=== PATIENT | female | born 1975 | race Caucasian/White ===

== ENCOUNTER 2017-02-10 16:54 | Inpatient (IN) ==
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
[2017-02-10 18:03] LABS: Basophils % 0.1 %; Eosinophils # 0.1 K/mcL (0.0-0.6); Eosinophils % 0.5 %; Hematocrit 42.7 % (35.3-44.9); Hemoglobin 14.2 g/dL (11.5-15.4); Immature Granulocytes % 0.6 % (0-4); Lymphocytes % 7.7 %; Mean Corpuscular HGB Conc 33.3 g/dL (31.6-35.5); Mean Corpuscular Hemoglobin 30.8 pg (28.0-33.3); Mean Corpuscular Volume 92.6 fL (83.0-100.0); Mean Platelet Volume 10.1 fL (9.4-12.4); Monocytes # 1.7 K/mcL (0.0-1.3); Monocytes % 6.4 %; Platelet Count 441 K/mcL (140-400); Red Blood Count 4.61 M/mcL (3.82-4.97); Red Cell Distribution Width 13.4 % (11.5-14.5); Segmented Neutrophils % 84.7 %
[2017-02-10 18:13] LABS: BUN/Creatinine Ratio 16 (6-26); Blood Urea Nitrogen 16 mg/dL (7-20); Calcium 9.4 mg/dL (8.6-10.8); Carbon Dioxide 25 mEq/L (19-29); Chloride 106 mEq/L (98-109); Glucose 132 mg/dL (70-99); Osmolality,Calculated 291 (280-300); Potassium 3.6 mEq/L (3.5-4.5); Sodium 139 mEq/L (136-145); eGFR For African Americans > 60 (> 60); eGFR For Non-African Americans 58 (> 60)
[2017-02-10 18:31] LABS: Reactive Lymphocytes Present (Not Present)
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
[2017-02-10] MEDS ORDERED: *HR* HYDROmorphone (PF) 1 MG/ML SYRINGE IM ONE (19:16)
[2017-02-10] MEDS ORDERED: Ondansetron ODT 4 MG TAB.RAPDIS SL ONE (19:16)
[2017-02-10] MEDS ORDERED: *HR* HYDROmorphone (PF) 1 MG/ML SYRINGE IVP ONE ×2 (19:48→21:51)
[2017-02-10] MEDS ORDERED: MetroNIDAZOLE 500 MG/100 ML 500 MG/100 ML BAG IVPB ONE (20:15)
[2017-02-10] MEDS ORDERED: cefTRIAXone 1,000 MG in Water for inj. (sterile) 10 ML IVP ONE (21:00)
[2017-02-10] MEDS ORDERED: Ibuprofen 400 MG TABLET PO PRN (23:22)
[2017-02-10] MEDS ORDERED: Naloxone 0.4 MG/ML INJ IVP PRN (23:22)
--- NOTE | 2017-02-10 23:25 | Internal Med History&Physical ---
Date of Encounter: 02/10/17 Time of Encounter: 23:53 Assessment and Plan (1) Sepsis Current visit: Yes Status: Acute Patient meets sepsis criteria with tachycardia of 1 29 bpm on arrival, associated with leukocytosis, and source of sepsis is diverticulitis with perforation. She is afebrile. Blood pressure is within normal limits. Lactate and blood cultures were not drawn by the ER , we will obtain the same. Continue Ceftriaxone and Flagyl Follow blood cultures Start IVF hydration Qualifiers: Sepsis type: sepsis due to unspecified organism Qualified Code(s): A41.9 - Sepsis, unspecified organism (2) Syncope Current visit: Yes Status: Acute Possibly vasovagal from abdominal pain Head CT and EKG unremarkable Obtain ECO Patient has no neurologic deficits. Qualifiers: Syncope type: unspecified Qualified Code(s): R55 - Syncope and collapse (3) Diverticulitis large intestine Current visit: Yes Status: Acute Sigmoid diverticulitis with microperforation Discussed with Dr. Kuo, he will evaluate patient Keep NPO for now IVF hydration Pain control Continue Ceftriaxone and Flagyl Qualifiers: Diverticulitis bleeding: unspecified bleeding status Diverticulitis complication: with perforation Qualified Code(s): K57.20 - Diverticulitis of large intestine with perforation and abscess without bleeding Internal Medicine - H&P: HPI Chief complaint: Abdominal pain, diarrhea. Admitted From: Home Plans for Post Hospital Care: Home History of present illness: Ms. Roberts is a 41 year old female with no significant medical history apart from tobacco use Patient presented to the ER with complaints of severe abdominal pain which status since she stopped taking steroids about 3 days ago, abdominal pain is not relieved by medications, severe, 9/OVER 10 , sharp and radiating to the back. Patient reports associated diarrhea and bowel incontinence. She denies fever or chills. The patient was in her usual state of health until 2 weeks ago when she fell in the bathtub. She went to an urgent care and was given prednisone for pain and chest wall contusion. She had no fractures. Since she stopped taking prednisone, she said she developed constipation, which was relieved with taking laxatives, however, she continued to have severe abdominal pain. Pain is worse when she eats, when she moves. During work today, she had an episode of disorientation, associated with seeing purple dots and passing out.She denies chest pain, shortness of breath, however she has been having to hold her breath because of severity of abdominal pain. She denies hematemesis or hematochezia. She has no nausea or vomiting. Other review of systems is not contributory. On presentation to the ER, patient was in severe pain, requiring 2 doses of Dilaudid, she was tachycardic with a heart rate off to the 120s, she was afebrile. Her blood pressure was within normal limits. Workup in the ER revealed leukocytosis, with left shift, mild hyperglycemia. Abdomen and pelvis CT done showed sigmoid , diverticulitis with associated multiple microperforations. There are no abscesses. Incidental finding of left nephrolithiasis. Head and chest CT were unremarkable. Past Med Surg Social Fam HX - Past Medical History Medical history: no medical history Psychiatric history: no psych history - Past Surgical History Surgical History: hysterectomy - Social History Smoking Status: Former smoker Smokeless Tobacco Status: (Chantex) Alcohol use: occasionally Drug use: none Internal Medicine - H&P: Meds Diclofenac Sodium [Voltaren] 75 mg PO Q12H 02/10/17 [History] Varenicline Tartrate [Chantix] 1 mg PO BID 02/10/17 [History] 3 Allergy/AdvReac Type Severity Reaction Status Date / Time Amoxicillin Allergy Hives Verified 02/10/17 17:26 Penicillins Allergy Hives Verified 02/10/17 17:26 codeine AdvReac See Verified 02/10/17 17:26 Comments All Systems PM: A 10-system review of systems was performed and is negative for pertinent findings except as documented above in the HPI. - Constitutional Constitutional: as per HPI - EENT Eyes: as per HPI Ears: as per HPI Nose, mouth and throat: as per HPI - Cardiovascular Cardiovascular ROS IM: as per HPI - Respiratory Respiratory: as per HPI - Gastrointestinal Gastrointestinal: as per HPI - Genitourinary Genitourinary: as per HPI - Musculoskeletal Musculoskeletal ROS IM: as per HPI - Integumentary Integumentary IM: as per HPI - Neurological Neurological ROS: as per HPI - Hematologic/Lymphatic Hematologic/Lymphatic: as per HPI - Constitutional Vitals: Temp Pulse Resp BP Pulse Ox 99.1 F 98 18 108/71 95 02/10/17 23:02 02/10/17 23:02 02/10/17 23:02 02/10/17 23:02 02/10/17 23:02 General appearance: Present: mild distress, A&O X 3, pleasant - Head Head exam: Present: atraumatic, normocephalic - Eye Eye exam: Present: PERRL, conjuntiva pink, sclera anicteric Pupils: Present: PERRL - Neck Neck exam general surgery: Present: supple, trachea midline. Absent: lymphadenopathy - Respiratory Respiratory exam: Present: CTAB. Absent: accessory muscle use, rales, rhonchi, wheezes - GI/Abdominal Additional comments: Abdomen was soft, generalized tenderness, abdomen moves with respiration, there is no guarding and no rebound. Bowel sounds are diminished. - Extremities Exam Extremities exam: Present: warm, radial pulses palpable and symmetrical. Absent : calf tenderness, cyanotic, pedal edema - Neurological Exam Neurological exam: Present: alert, CN II-XII intact, normal gait, oriented X3, no focal deficits. Absent: pronater drift, facial droop, speech deficit - Skin Skin exam: Present: dry, intact Internal Med - H&P Results - Labs CBC & Chem 7: 02/10/17 17:53 02/10/17 17:53
[2017-02-11] MEDS: 0.9 % Sodium Chloride 1,000 ML IVC SCH ×2 (00:42→17:03)
[2017-02-11] MEDS: *HR* HYDROmorphone (PF) 1 MG/ML SYRINGE IVP PRN ×5 (00:51→20:31)
[2017-02-11 00:53] LABS: Basophils % 0.2 %; Immature Granulocytes % 0.8 % (0-4)
[2017-02-11 00:55] LABS: Basophils # 0.1 K/mcL (0.0-0.2); Eosinophils # 0.2 K/mcL (0.0-0.6); Eosinophils % 0.6 %; Hematocrit 38.7 % (35.3-44.9); Immature Platelets 3.9 % (1.1-6.1); Lymphocytes # 2.7 K/mcL (0.6-4.6); Lymphocytes % 9.7 %; Mean Corpuscular HGB Conc 33.6 g/dL (31.6-35.5); Mean Corpuscular Volume 92.1 fL (83.0-100.0); Monocytes # 2.9 K/mcL (0.0-1.3); Monocytes % 10.4 %; Neutrophils # 21.9 K/mcL (1.6-8.9); Platelet Count 409 K/mcL (140-400); Red Cell Distribution Width 13.6 % (11.5-14.5); Segmented Neutrophils % 78.3 %
[2017-02-11 01:07] LABS: BUN/Creatinine Ratio 14 (6-26); Blood Urea Nitrogen 11 mg/dL (7-20); Calcium 9.1 mg/dL (8.6-10.8); Carbon Dioxide 22 mEq/L (19-29); Chloride 105 mEq/L (98-109); Glucose 98 mg/dL (70-99); Osmolality,Calculated 281 (280-300); Phosphorous 3.2 mg/dL (2.3-4.7); Sodium 136 mEq/L (136-145); eGFR For African Americans > 60 (> 60); eGFR For Non-African Americans > 60 (> 60)
[2017-02-11 01:40] LABS: Platelet Estimate Increased (Normal)
[2017-02-11] MEDS: Acetaminophen 325 MG TABLET PO PRN ×2 (04:03→12:16)
[2017-02-11] MEDS: MetroNIDAZOLE 500 MG/100 ML 500 MG/100 ML BAG IVPB SCH ×3 (04:04→20:31)
[2017-02-11] MEDS: *HR* Enoxaparin 40 MG/0.4 ML SYRINGE SQ SCH (05:01)
[2017-02-11] MEDS: Ondansetron 4 MG/2 ML VIAL IVP PRN ×3 (08:03→20:31)
[2017-02-11] MEDS ORDERED: cefTRIAXone 1,000 MG in Water for inj. (sterile) 10 ML IVP SCH (09:00)
--- NOTE | 2017-02-11 11:15 | Internal Med Progress Note ---
Date of Encounter: 02/11/17 Time of Encounter: 09:00 - Assessment and plan (1) Sepsis Current Visit: Yes Status: Acute Assessment and plan: Due to diverticulitis. Leukocytosis persists. Patient is receiving ceftriaxone and metronidazole. Also requiring intravenous narcotic medications for pain control. Lactic acid normal. High-risk for complications. Qualifiers: Sepsis type: sepsis due to unspecified organism Qualified Code(s): A41.9 - Sepsis, unspecified organism (2) Diverticulitis large intestine Current Visit: Yes Status: Acute Assessment and plan: Involving sigmoid colon with microperforation. Surgery has been consulted. We will follow recommendations Qualifiers: Diverticulitis bleeding: without bleeding Diverticulitis complication: with perforation Qualified Code(s): K57.20 - Diverticulitis of large intestine with perforation and abscess without bleeding (3) Syncope Current Visit: Yes Status: Resolved Assessment and plan: No new episodes. We will follow results of echocardiogram. Qualifiers: Syncope type: vasovagal syncope Qualified Code(s): R55 - Syncope and collapse - Subjective Interval history: Patient is awake and alert. Complains of pain all across her abdomen. She also complains of a headache and back pain. Denies any fever or chills. No dizziness. - Constitutional Vitals: Temp Pulse Resp BP Pulse Ox 98.6 F 87 14 123/83 97 02/11/17 07:20 02/11/17 07:20 02/11/17 07:20 02/11/17 07:20 02/11/17 07:20 General appearance: Present: cooperative, mild distress, A&O X 3, pleasant, answers questions appropriately - Neck Neck exam general surgery: Present: supple, trachea midline. Absent: lymphadenopathy - Respiratory Respiratory exam: Present: chest wall tenderness, CTAB. Absent: accessory muscle use, rales, rhonchi, wheezes - Cardiovascular Cardiovascular exam: Present: RRR, +S1, +S2. Absent: diastolic murmur, gallop, rubs, systolic murmur - GI/Abdominal GI/Abdominal exam: Present: normal bowel sounds, soft, tenderness (Diffuse but especially prominent in the lower abdomen), no peritoneal signs. Absent: distended - Extremities Exam Extremities exam: Present: warm, radial pulses palpable and symmetrical. Absent : calf tenderness, cyanotic, pedal edema - Neurological Exam Neurological exam: Present: alert, oriented X3, no focal deficits. Absent: facial droop, speech deficit - Skin Skin exam: Present: dry, intact Internal Medicine: Result - Labs CBC & Chem 7: 02/11/17 00:41 02/11/17 00:41 Consult Discharge Plan - Plan Referrals: Malathi Mcknight [Primary Care Provider] -
--- NOTE | 2017-02-11 14:01 | General Surgery Consult Note ---
Date of Encounter: 02/11/17 Time of Encounter: 13:00 Assessment and Plan (1) Diverticulitis of colon with perforation Current Visit: Yes Status: Acute Continue with conservative treatment at this time including: Bowel rest IV antibiotics- Cipro and Flagyl IV fluids Supportive care and pain control IS every 1 hour while awake PPI therapy daily Serial abdominal exams Repeat am labs Qualifiers: Diverticulitis bleeding: without bleeding Qualified Code(s): K57.20 - Diverticulitis of large intestine with perforation and abscess without bleeding (2) DVT prophylaxis Current Visit: Yes Status: Acute Lovenox 40mg SQ daily for DVT prophylaxis History of Present Illness Consult date: 02/10/17 Reason for consult: other (diverticulitis with microperforation) Requesting physician: Don Frey History of present illness: Mrs. Roberts is a 41 year old female who presented to the ED with complaints of abdominal discomfort. She reports that she initially fell 11 days ago while getting out of her hot tub. She felt a popping sensation which was followed by right sided pain. She reported to urgent care and states that she was treated for a contusion which occurred when she fell. She was given steroids and non- narcotic pain medication. She states that she completed the medication and felt better until 2 days ago. At that time, she states that she developed acute onset of severe sharp/stabbing/cramping abdominal pain over her entire abdomen. Describes it as the worst menstrual cramp she has ever experienced. She states that the pain has been persistent and she initially experienced constipation. She states that she took Miralax and was able to have a bowel movement. This did not help her pain. She continued to take laxatives and stool softners and reported diarrhea wit incontinence prior to presenting to the ED. The pain radiates into her lower back and up her spine into her shoulders. She has never experienced pain like this in the past. She did not check her temperature but she does report chills. Admits to nausea but denies any vomiting. Admits to feeling dizzy and states that she has a terrible headache. Denies any shortness of breath of chest pains. Denies any difficulty with urination. The patient has had a CAT scan evaluation which shows findings consistent with diverticulitis with microperforation. We have been asked to see and evaluate the patient for further recommendations. Past Med Surg Social Fam HX - Past Medical History Source: patient, old records reviewed Medical history: no medical history Psychiatric history: no psych history - Past Surgical History Surgical History: , hysterectomy, ANIL/BSO, other (kidney stone removal , laparoscopy at age 14 for pelvic pain, uterine ablation) - Social History Smoking Status: Former smoker (Quit 2 weeks ago) Smokeless Tobacco Status: (Chantex) Alcohol use: occasionally (2-4 times per month) Drug use: none Occupational status: employed Current living situation: Home - Independent Activity Level: Independent ambulation - Family History Mother Living Status: Age at : 61 Hx Family Cardiac Disorders: Yes (HTN) Hx Family Cancer: Yes (breast cancer diagnosed at age 50) Father Living Status: Still Living Hx Family Cardiac Disorders: Yes (HTN) Hx Family Endocrine Disorder: Yes (DM) Sister Living Status: Still Living Hx Family Endocrine Disorder: Yes (DM) Hx Family Medical Disorders: Yes (Obesity, Kidney disease) Daughter Living Status: Still Living Hx Family Medical Disorders: Yes (Cerebral Palsy) Medications and Allergies Diclofenac Sodium [Voltaren] 75 mg PO Q12H 02/10/17 [History] Varenicline Tartrate [Chantix] 1 mg PO BID 02/10/17 [History] 3 Allergy/AdvReac Type Severity Reaction Status Date / Time Amoxicillin Allergy Hives Verified 02/10/17 17:26 Penicillins Allergy Hives Verified 02/10/17 17:26 codeine AdvReac See Verified 02/10/17 17:26 Comments Review of Systems All systems PM: reviewed and no additional remarkable complaints except as stated (in the HPI) All systems PM: A 10-system review of systems was performed and is negative for pertinent findings except as documented above in the HPI. General Surgery Exam Initial Vital Signs Temp Pulse Resp BP Pulse Ox 99.6 F 129 22 152/88 98 02/10/17 17:21 02/10/17 17:21 02/10/17 17:21 02/10/17 17:21 02/10/17 17:21 - General physical appearance well developed, well nourished, moderate distress, moderate pain - Eyes normal ocular movement - ENT dry mucosa, atraumatic, normocephalic - Neck trachea midline - Respiratory normal respiratory effort, clear to auscultation - Abdomen Abdomen general surgery: Present: soft, tender Abdominal Tenderness: Present: LLQ, suprapubic - Integumentary Integumentary general surgery: Present: warm and dry - Neurologic Present: CN 2-12 grossly intact - Psychiatric Psychiatric general surgery: Present: appropriate, oriented to person, oriented to place, oriented to time, speech is normal, memory intact Exam Initial Vital Signs Temp Pulse Resp BP Pulse Ox 99.6 F 129 22 152/88 98 02/10/17 17:21 02/10/17 17:21 02/10/17 17:21 02/10/17 17:21 02/10/17 17:21 Results - Labs 02/11/17 00:41 02/11/17 00:41 Abnormal lab results WBC 27.9 K/mcL (4.3-11.1) H 02/11/17 00:41 Plt Count 409 K/mcL (140-400) H 02/11/17 00:41 Neutrophils # 21.9 K/mcL (1.6-8.9) H 02/11/17 00:41 Monocytes # 2.9 K/mcL (0.0-1.3) H 02/11/17 00:41 Reactive Lymphocytes Present (Not Present) A 02/10/17 17:53 Platelet Estimate Increased (Normal) H 02/11/17 00:41 All other labs normal. - Imaging Additional studies: Abdomen/Pelvis CTA 02/10/17 17:42 IMPRESSION: No CT evidence of aortic dissection. Sigmoid colonic diverticulitis complicated by several foci of pericolic extraluminal gas compatible with microperforation. Mild fatty infiltration of liver. Left nephrolithiasis. D/ / Gladys Montiel Cha, MD / Gladys Montiel Cha, MD Interpreting Provider: Gladys Montiel Cha, MD Chest CTA 02/10/17 17:42 IMPRESSION: No CT evidence of aortic dissection. Sigmoid colonic diverticulitis complicated by several foci of pericolic extraluminal gas compatible with microperforation. Mild fatty infiltration of liver. Left nephrolithiasis. D/ / Gladys Montiel Cha, MD / Gladys Montiel Cha, MD Interpreting Provider: Gladys Montiel Cha, MD Head CT 02/10/17 17:42 IMPRESSION: No acute intracranial abnormality. D/ / Glen Forte MD / Glen Forte MD Interpreting Provider: Glen Forte MD Echocardiogram 02/11/17 00:09 Impressions: LVEF 70%. Normal LV chamber size, wall thickness and function. Mild left ventricular diastolic dysfunction. Normal right ventricular structure and function. No evidence of pulmonary hypertension. No significant valvular dysfunction. Left Ventricular Wall Motion: Rest Echo Findings All wall segments showed normal motion. Findings: Study Quality * Technically adequate exam. ECG Findings * Normal sinus rhythm. Left Ventricle * LVEF 70%. * Normal LV chamber size, wall thickness and function. * Mild left ventricular diastolic dysfunction. Right Ventricle * Normal right ventricular structure and function. Left Atrium * Mildly dilated left atrium. Right Atrium * Normal right atrial size. Interatrial Septum * No evidence of PFO by color Doppler. Aortic Valve * Trileaflet aortic valve with normal function. * No aortic regurgitation. * No aortic stenosis. Mitral Valve * Normal mitral valve structure and function. * No mitral regurgitation. * No mitral stenosis. Tricuspid Valve * Normal tricuspid valve structure and function. * Trace tricuspid regurgitation. * No evidence of pulmonary hypertension. Pulmonic Valve * Normal pulmonic valve structure and function. * Trace pulmonic regurgitation. Aorta * Normally sized aortic root. Pericardium * The pericardium appears normal. IVC * Normal IVC dimensions and inspiratory collapse. Pulmonary Artery * Normal visualized portions of the main pulmonary artery. Consult Discharge Plan - Plan Referrals: Malathi Mcknight [Primary Care Provider] - - Attending Attestation For this encounter, I have reviewed the FORENSIC PHOTOGRAPHER or PA documentation, treatment plan, and medical decision making; and I have had face to face time with this patient.
[2017-02-11] MEDS ORDERED: Ketorolac 30 MG/ML VIAL IVP ONE (14:25)
[2017-02-11] MEDS: Acetaminophen/Aspirin/Caffeine TABLET PO PRN (15:05)
--- NOTE | 2017-02-11 18:15 | Electrocardiograph Report ---
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
[2017-02-12] MEDS: Ketorolac 15 MG/ML VIAL IVP PRN ×3 (00:40→17:02)
[2017-02-12] MEDS: Acetaminophen/Aspirin/Caffeine TABLET PO PRN (03:56)
[2017-02-12] MEDS: MetroNIDAZOLE 500 MG/100 ML 500 MG/100 ML BAG IVPB SCH ×3 (03:56→21:21)
[2017-02-12] MEDS: *HR* HYDROmorphone (PF) 1 MG/ML SYRINGE IVP PRN ×2 (06:00→12:42)
[2017-02-12] MEDS: *HR* Enoxaparin 40 MG/0.4 ML SYRINGE SQ SCH (06:01)
[2017-02-12 06:28] LABS: Basophils % 0.2 %; Eosinophils # 0.3 K/mcL (0.0-0.6); Eosinophils % 1.6 %; Hematocrit 36.1 % (35.3-44.9); Hemoglobin 11.9 g/dL (11.5-15.4); Immature Granulocytes % 0.6 % (0-4); Lymphocytes # 1.6 K/mcL (0.6-4.6); Lymphocytes % 8.8 %; Mean Corpuscular Hemoglobin 30.8 pg (28.0-33.3); Mean Corpuscular Volume 93.5 fL (83.0-100.0); Mean Platelet Volume 10.2 fL (9.4-12.4); Monocytes # 1.7 K/mcL (0.0-1.3); Monocytes % 9.4 %; Neutrophils # 14.1 K/mcL (1.6-8.9); Platelet Count 385 K/mcL (140-400); Red Blood Count 3.86 M/mcL (3.82-4.97); Red Cell Distribution Width 13.4 % (11.5-14.5); Segmented Neutrophils % 79.4 %
--- NOTE | 2017-02-12 09:51 | General Surgery Progress Note ---
Date of Encounter: 02/12/17 Time of Encounter: 09:30 - Assessment and Plan (1) Diverticulitis of colon with perforation Current Visit: Yes Status: Acute The patient has made significant improvement in her physical examination last 12 hours. She is appropriate for clear liquids at this point. She continues to improve on intravenous antibiotic and I would continue this for at least another 24-36 hours before changing to by mouth antibiotics Qualifiers: Diverticulitis bleeding: without bleeding Qualified Code(s): K57.20 - Diverticulitis of large intestine with perforation and abscess without bleeding Subjective Narrative: The patient is being treated for diverticulitis. She is made tremendous improvement in the last 12 hours. Her abdominal pain is almost gone. Her physical examination is negative for any guarding or rebound. She only has mild tenderness to deep palpation in the left lower quadrant. Her white blood cell count is also significantly decreased. Overall is making progress on antibiotic therapy. I think at reasonable to start clear liquid diet. Objective Vital Signs - Last 8 Hours Temp Pulse Resp BP Pulse Ox 02/12/17 07:54 97.7 F 66 14 111/69 98 02/12/17 04:24 98.3 F 77 15 102/65 97 Intake and Output 02/11/17 02/12/17 02/12/17 23:59 07:59 15:59 Intake Total 300 / 300 100 / 100 Output Total 300 / 300 0 / 0 Balance 0 / 0 100 / 100 0 / 0 Intake: IV Fluids 300 / 300 100 / 100 Cipro Premix 400 MG/200 ML 400 200 / 200 mg In 200 ml @ 200 mls/hr IVPB Q12HR [facility] Rx#:[id number] Flagyl Premix 500 MG/100 ML 500 100 / 100 100 / 100 mg In 100 ml @ 100 mls/hr IVPB Q8H [facility] Rx#:[id number] Oral 0 / 0 0 / 0 Output: Urine 300 / 300 0 / 0 Other: # Voids 2 Blood Glucose* 71 - General physical appearance well developed, well nourished, moderate pain - Respiratory normal expansion, normal respiratory effort, clear to percussion, clear to auscultation - Cardiovascular Cardiovascular exam: Present: RRR, no murmurs/rubs/gallops - Abdomen Abdomen: Present: bowel sounds present, soft, tender (Mild tenderness to deep palpation in the left lower quadrant) - Neurologic normal coordination, normal sensation - Psychiatric oriented to time, oriented to person, oriented to place, speech is normal, memory intact - Labs 02/12/17 05:37 02/11/17 00:41 Consult Discharge Plan - Plan Referrals: Malathi Mcknight [Primary Care Provider] -
[2017-02-12] MEDS: Ondansetron 4 MG/2 ML VIAL IVP PRN ×2 (10:17→17:01)
[2017-02-12] MEDS: Diclofenac Sodium 75 MG TABLET PO SCH ×2 (10:18→21:21)
--- NOTE | 2017-02-12 14:22 | Internal Med Progress Note ---
Date of Encounter: 02/12/17 Time of Encounter: 09:45 - Assessment and plan (1) Sepsis Current Visit: Yes Status: Acute Assessment and plan: Due to acute diverticulitis. Continue current management with intravenous antibiotics. Moderate risk for complications. Qualifiers: Sepsis type: sepsis due to unspecified organism Qualified Code(s): A41.9 - Sepsis, unspecified organism (2) Diverticulitis large intestine Current Visit: Yes Status: Acute Assessment and plan: Follow surgery recommendations. Continue intravenous antibiotics for 24-36 hours. Start patient on clears today. Pain control. Qualifiers: Diverticulitis bleeding: without bleeding Diverticulitis complication: with perforation Qualified Code(s): K57.20 - Diverticulitis of large intestine with perforation and abscess without bleeding (3) Syncope Current Visit: Yes Status: Resolved Qualifiers: Syncope type: vasovagal syncope Qualified Code(s): R55 - Syncope and collapse - Subjective Interval history: Patient is feeling much better today. Abdominal pain has improved significantly. No nausea or vomiting. She is to be started on a diet. No fever or chills reported overnight. - Constitutional Vitals: Temp Pulse Resp BP Pulse Ox 97.7 F 66 14 111/69 98 02/12/17 07:54 02/12/17 07:54 02/12/17 07:54 02/12/17 07:54 02/12/17 07:54 General appearance: Present: cooperative, mild distress, A&O X 3, pleasant, answers questions appropriately - Respiratory Respiratory exam: Present: CTAB. Absent: accessory muscle use, rales, rhonchi, wheezes - Cardiovascular Cardiovascular exam: Present: RRR, +S1, +S2. Absent: diastolic murmur, gallop, rubs, systolic murmur - GI/Abdominal GI/Abdominal exam: Present: normal bowel sounds, soft, tenderness (Left lower quadrant), no peritoneal signs. Absent: distended - Extremities Exam Extremities exam: Present: warm, radial pulses palpable and symmetrical. Absent : calf tenderness, cyanotic, pedal edema - Neurological Exam Neurological exam: Present: CN II-XII intact, oriented X3, no focal deficits. Absent: facial droop, speech deficit Internal Medicine: Result - Labs CBC & Chem 7: 02/12/17 05:37 02/11/17 00:41 Labs: Short CBC 02/12/17 Range/Units 05:37 WBC 17.8 H (4.3-11.1) K/mcL Hgb 11.9 (11.5-15.4) g/dL Hct 36.1 (35.3-44.9) % Plt Count 385 (140-400) K/mcL Neutrophils # 14.1 H (1.6-8.9) K/mcL Consult Discharge Plan - Plan Referrals: Malathi Mcknight [Primary Care Provider] -
[2017-02-13] MEDS: MetroNIDAZOLE 500 MG/100 ML 500 MG/100 ML BAG IVPB SCH ×3 (04:27→21:32)
[2017-02-13] MEDS: *HR* Enoxaparin 40 MG/0.4 ML SYRINGE SQ SCH (05:48)
[2017-02-13] MEDS: Ketorolac 15 MG/ML VIAL IVP PRN (06:50)
[2017-02-13 09:11] LABS: Basophils % 0.3 %; Eosinophils # 0.3 K/mcL (0.0-0.6); Eosinophils % 2.5 %; Hematocrit 37.8 % (35.3-44.9); Hemoglobin 12.8 g/dL (11.5-15.4); Immature Granulocytes % 0.7 % (0-4); Immature Platelets 3.4 % (1.1-6.1); Lymphocytes # 1.4 K/mcL (0.6-4.6); Lymphocytes % 12.3 %; Mean Corpuscular HGB Conc 33.9 g/dL (31.6-35.5); Mean Corpuscular Hemoglobin 31.3 pg (28.0-33.3); Mean Corpuscular Volume 92.4 fL (83.0-100.0); Mean Platelet Volume 9.7 fL (9.4-12.4); Monocytes # 1.1 K/mcL (0.0-1.3); Monocytes % 9.2 %; Neutrophils # 8.6 K/mcL (1.6-8.9); Platelet Count 485 K/mcL (140-400); Red Blood Count 4.09 M/mcL (3.82-4.97); Red Cell Distribution Width 13.2 % (11.5-14.5)
[2017-02-13] MEDS: Diclofenac Sodium 75 MG TABLET PO SCH ×2 (09:41→21:32)
[2017-02-13] MEDS: Ondansetron 4 MG/2 ML VIAL IVP PRN (09:41)
--- NOTE | 2017-02-13 09:48 | Internal Med Progress Note ---
Date of Encounter: 02/13/17 Time of Encounter: 09:15 - Assessment and plan (1) Sepsis Current Visit: Yes Status: Acute Assessment and plan: Due to acute diverticulitis. Abdominal pain is improving. CBC pending. We will follow results. Continue current antibiotics. Monitor vital signs. Follow surgery recommendations. Moderate risk for complications. Qualifiers: Sepsis type: sepsis due to unspecified organism Qualified Code(s): A41.9 - Sepsis, unspecified organism (2) Diverticulitis large intestine Current Visit: Yes Status: Acute Assessment and plan: Continue management as above. Continue clear liquids. Qualifiers: Diverticulitis bleeding: without bleeding Diverticulitis complication: with perforation Qualified Code(s): K57.20 - Diverticulitis of large intestine with perforation and abscess without bleeding (3) Syncope Current Visit: Yes Status: Resolved Qualifiers: Syncope type: vasovagal syncope Qualified Code(s): R55 - Syncope and collapse - Subjective Interval history: Patient complains of malaise and nausea. Abdominal pain is improving. She has not had a bowel movement. Able to tolerate liquids when she drinks rum but feels nauseated soon after. No fever or chills reported overnight - Constitutional Vitals: Temp Pulse Resp BP Pulse Ox 97.9 F 85 17 120/77 97 02/13/17 07:35 02/13/17 07:35 02/13/17 07:35 02/13/17 07:35 02/13/17 07:35 General appearance: Present: cooperative, mild distress, A&O X 3, pleasant, answers questions appropriately - Neck Neck exam general surgery: Present: supple, trachea midline. Absent: lymphadenopathy - Cardiovascular Cardiovascular exam: Present: RRR, +S1, +S2. Absent: diastolic murmur, gallop, rubs, systolic murmur - GI/Abdominal GI/Abdominal exam: Present: normal bowel sounds, soft, tenderness (Mild left lower quadrant tenderness), no peritoneal signs. Absent: distended - Extremities Exam Extremities exam: Present: warm, radial pulses palpable and symmetrical. Absent : calf tenderness, cyanotic, pedal edema - Neurological Exam Neurological exam: Present: alert, CN II-XII intact, oriented X3, no focal deficits. Absent: facial droop, speech deficit Internal Medicine: Result - Labs CBC & Chem 7: 02/13/17 09:04 02/11/17 00:41 Labs: Short CBC 02/13/17 Range/Units 09:04 WBC 11.4 H (4.3-11.1) K/mcL Hgb 12.8 (11.5-15.4) g/dL Hct 37.8 (35.3-44.9) % Plt Count 485 H (140-400) K/mcL Neutrophils # 8.6 (1.6-8.9) K/mcL Consult Discharge Plan - Plan Referrals: Malathi Mcknight [Primary Care Provider] -
--- NOTE | 2017-02-13 10:47 | General Surgery Progress Note ---
Date of Encounter: 02/13/17 Time of Encounter: 10:30 - Assessment and Plan (1) Diverticulitis of colon with perforation Current Visit: Yes Status: Acute The patient has made significant improvement in her physical examination last 12 hours. She is appropriate for clear liquids at this point. She continues to improve on intravenous antibiotic and I would continue this for at least another 24-36 hours before changing to by mouth antibiotics 02/13/2017 The patient has made significant improvement since yesterday. Her abdominal examination is completely negative today. She continues to have some nausea. She has an overall feeling of malaise. I think this is related to Chantix withdraw. Chantix has been restarted. I recommend continuing IV antibiotics today as well as clear liquids. Qualifiers: Diverticulitis bleeding: without bleeding Qualified Code(s): K57.20 - Diverticulitis of large intestine with perforation and abscess without bleeding Subjective Narrative: The patient continues to make excellent progress. Her abdominal exam today is completely negative. She does however have several complaints. She has persistent nausea. She also has a general feeling of malaise but no isolated abdominal pain. It is noted that she has been on Chantix for a month and acutely stopped this several days ago. She was restarted on her Chantix last night. I think that this may have a significant impact on her overall sense of improvement. I think with her nausea we will continue her on clear liquids today. She is passing flatus but has no bowel movement yet. Overall improved Objective Vital Signs - Last 8 Hours Temp Pulse Resp BP Pulse Ox 02/13/17 07:35 97.9 F 85 17 120/77 97 02/13/17 03:31 97.5 F L 83 16 103/68 97 Intake and Output 02/12/17 02/13/17 02/13/17 23:59 07:59 15:59 Intake Total 400 / 400 300 / 300 0 / 0 Output Total 0 / 0 Balance 400 / 400 300 / 300 0 / 0 Intake: IV Fluids 400 / 400 300 / 300 Cipro Premix 400 MG/200 ML 400 200 / 200 200 / 200 mg In 200 ml @ 200 mls/hr IVPB Q12HR [facility] Rx#:[id number] Flagyl Premix 500 MG/100 ML 500 200 / 200 100 / 100 mg In 100 ml @ 100 mls/hr IVPB Q8H [facility] Rx#:[id number] Oral 0 / 0 0 / 0 Output: Urine 0 / 0 Other: Meal Clear Clear Percent of Meal Consumed 0% 0% # Voids 1 1 Weight 81.6 kg Patient Weight 02/13/17 23:59 Weight 81.6 kg - General physical appearance well developed, well nourished - Respiratory normal expansion, normal respiratory effort, clear to percussion, clear to auscultation - Cardiovascular Cardiovascular exam: Present: RRR, no murmurs/rubs/gallops - Abdomen Abdomen: Present: bowel sounds present, soft, non tender (Abdominal examination markedly improved compared to yesterday) - Neurologic normal coordination, normal sensation - Psychiatric other (The patient is anxious and tearful. We spent some time talking about this and I feel this is related to Chantix withdraw. Chantix is restarted.) - Labs 02/13/17 09:04 02/11/17 00:41 Consult Discharge Plan - Plan Referrals: Malathi Mcknight [Primary Care Provider] -
[2017-02-13] MEDS: *HR* Promethazine 25 MG/ML VIAL IVP PRN ×2 (14:43→21:32)
[2017-02-14] MEDS: Ondansetron 4 MG/2 ML VIAL IVP PRN ×2 (00:21→07:35)
[2017-02-14] MEDS: *HR* Promethazine 25 MG/ML VIAL IVP PRN (04:07)
[2017-02-14] MEDS: MetroNIDAZOLE 500 MG/100 ML 500 MG/100 ML BAG IVPB SCH ×2 (05:08→11:26)
[2017-02-14] MEDS: *HR* Enoxaparin 40 MG/0.4 ML SYRINGE SQ SCH (06:10)
[2017-02-14 07:29] VITALS: BP 123/76
[2017-02-14] MEDS: Diclofenac Sodium 75 MG TABLET PO SCH (07:31)
--- NOTE | 2017-02-14 10:02 | Discharge Summary ---
Date of Encounter: 02/14/17 Time of Encounter: 09:59 - Discharge Diagnosis (1) Sepsis Priority: Primary Status: Acute Qualifiers: Sepsis type: sepsis due to unspecified organism Qualified Code(s): A41.9 - Sepsis, unspecified organism (2) Diverticulitis large intestine Priority: Secondary Status: Acute Qualifiers: Diverticulitis bleeding: without bleeding Diverticulitis complication: with perforation Qualified Code(s): K57.20 - Diverticulitis of large intestine with perforation and abscess without bleeding (3) Syncope Priority: Secondary Status: Resolved Qualifiers: Syncope type: vasovagal syncope Qualified Code(s): R55 - Syncope and collapse - Discharge Medications Prescriptions: Ciprofloxacin [Cipro] 500 mg PO BID #14 tablet Famotidine [Pepcid] 20 mg PO BID #30 tablet metroNIDAZOLE [Flagyl] 500 mg PO TID #21 tablet Ondansetron HCl [Zofran] 4 mg PO Q4H PRN #20 tablet PRN Reason: Nausea Home Medications: Diclofenac Sodium [Voltaren] 75 mg PO Q12H 02/10/17 [History] Varenicline Tartrate [Chantix] 1 mg PO BID 02/10/17 [History] Ciprofloxacin [Cipro] 500 mg PO BID #14 tablet 02/14/17 [Rx] Famotidine [Pepcid] 20 mg PO BID #30 tablet 02/14/17 [Rx] Ondansetron HCl [Zofran] 4 mg PO Q4H PRN #20 tablet 02/14/17 [Rx] metroNIDAZOLE [Flagyl] 500 mg PO TID #21 tablet 02/14/17 [Rx] Allergies/Adverse Reactions: 3 Allergy/AdvReac Type Severity Reaction Status Date / Time Amoxicillin Allergy Hives Verified 02/10/17 17:26 Penicillins Allergy Hives Verified 02/10/17 17:26 codeine AdvReac See Verified 02/10/17 17:26 Comments Date of admission: 02/11/17 02:33 Primary care physician: Malathi Mcknight Consults: 02/10/17 23:27 Consult to Surgery [CONS] Routine Consulting Provider: Surgery [facility] Reason for Consult: Diverticulitis with microperforations Call Completed: Yes Discharging clinician: Lionel Alanis Anticipated date of discharge: 02/14/17 - Patient Status Disposition: Home, Self-Care Condition: Good Functional capacity at discharge: independent ambulation Overall status at discharge: patient is progressing back to baseline - Discharge Instructions Instructions: Diverticulitis (DC) Follow Up With: Alonso Kuo DO [Partnered Physician] - 03/15/17 1:50 pm (in 3-4 weeks for possible colonoscopy) Malathi Mcknight [Primary Care Provider] - 03/01/17 10:30 am () - Diet and Activity Activity: increase activity as tolerated Diet: low fat, low cholesterol, low salt diet Hospital course: Ms. Roberts is a 41 year old female patient who presented to the ER after a syncopal spell and was diagnosed with sepsis related to diverticulitis of large intestine. She appeared to have a vasovagal episode with resulting brief loss of consciousness. Symptoms subsided soon after. In the ER, she underwent CT scan of the abdomen and pelvis which showed sigmoid diverticulitis with was started on IV antibiotics, kept nothing by mouth and surgery was consulted. She received IV fluids. Her symptoms slowly improved with this conservative management and she is now able to tolerate oral diet and is not in any pain. She has been cleared for discharge from surgical standpoint. She will complete oral antibiotic course and will follow up with surgery as outpatient for further evaluation and management. - Time Spent with Patient Total time spent providing and/or coordinating discharge services: Greater than 30 minutes (35 min) - Constitutional Vitals: Temp Pulse Resp BP Pulse Ox 97.6 F 79 14 123/76 95 02/14/17 07:28 02/14/17 07:28 02/14/17 07:28 02/14/17 07:28 02/14/17 07:28 General appearance: Present: cooperative, mild distress, A&O X 3, pleasant, answers questions appropriately - Respiratory Respiratory exam: Present: CTAB. Absent: accessory muscle use, rales, rhonchi, wheezes - Cardiovascular Cardiovascular exam: Present: RRR, +S1, +S2. Absent: diastolic murmur, gallop, rubs, systolic murmur - GI/Abdominal GI/Abdominal exam: Present: normal bowel sounds, soft, no peritoneal signs. Absent: distended, tenderness - Extremities Exam Extremities exam: Present: warm, radial pulses palpable and symmetrical. Absent : calf tenderness, cyanotic, pedal edema - Neurological Exam Neurological exam: Present: alert, CN II-XII intact, oriented X3, no focal deficits. Absent: facial droop, speech deficit
--- NOTE | 2017-02-14 13:00 | Event Note ---
Date of Encounter: 02/14/17 Time of Encounter: 12:59 Patient left before she could be examined by this nurse practitioner. She is noted to have a follow-up with Dr. Kuo on March 15, 2017 for perforated diverticulitis. She is discharged on oral Cipro and Flagyl per the primary team.
== END 2017-02-14 13:00 | disposition home or self-care (01) | DRG 720 ==
LOC: EMEROO 16:54 → 3ANU 16:54
PROVIDERS: ADMIT Internal Medicine; ATTEND Internal Medicine

== ENCOUNTER 2017-04-21 12:04 | Inpatient (IN) ==
[2017-04-21] MEDS ORDERED: 0.9 % Sodium Chloride 1,000 ML IVC ONE (12:45)
[2017-04-21] MEDS ORDERED: *HR* Morphine 2 MG/ML SYRINGE IVP ONE (12:45)
[2017-04-21] MEDS ORDERED: Ondansetron 4 MG/2 ML VIAL IVP ONE (12:45)
[2017-04-21 12:58] LABS: Basophils % 0.3 %; Hematocrit 43.5 % (35.3-44.9); Hemoglobin 14.2 g/dL (11.5-15.4); Immature Granulocytes % 0.3 % (0-4); Lymphocytes # 1.2 K/mcL (0.6-4.6); Lymphocytes % 7.9 %; Mean Corpuscular HGB Conc 32.6 g/dL (31.6-35.5); Mean Platelet Volume 10.4 fL (9.4-12.4); Monocytes # 1.7 K/mcL (0.0-1.3); Monocytes % 11.1 %; Neutrophils # 12.6 K/mcL (1.6-8.9); Platelet Count 402 K/mcL (140-400); Red Blood Count 4.73 M/mcL (3.82-4.97); Red Cell Distribution Width 14.1 % (11.5-14.5); Segmented Neutrophils % 80.4 %
[2017-04-21 12:59] LABS: Bilirubin,Urine Negative (Negative); Blood,Urine Moderate (Negative); Clarity,Urine Clear (Clear); Color,Urine Yellow (Yellow); Glucose,Urine (UA) Normal (Normal); Ketones,Urine 15 mg/dL (Negative); Leukocyte Esterase,Urine Negative (Negative); Nitrite,Urine Negative (Negative); PH,Urine 7.5 pH Units (5.0-8.0); Protein,Urine Trace mg/dL (Neg-Trace); Specific Gravity,Urine 1.015 (1.010-1.025); Urobilinogen,Urine Normal (Normal)
[2017-04-21 13:01] LABS: Bacteria,Urine None Seen per hpf (None-Few); Hyaline Casts,Urine None Seen per lpf (None-Few); RBC,Urine 15-30 per hpf (0-3); Squamous Epithelial Cell,Urine Many per lpf (None-Few); WBC,Urine 0-3 per hpf (0-3)
[2017-04-21] MEDS ORDERED: Naloxone 0.4 MG/ML INJ IVP PRN (13:03)
[2017-04-21 13:14] LABS: Alanine Aminotransferase 28 Units/L (7-52); Albumin 4.7 g/dL (3.5-5.7); Albumin/Globulin Ratio 1.4 (1.1-2.2); Alkaline Phosphatase 85 Units/L (34-104); Aspartate Amino Transferase 23 Units/L (13-39); BUN/Creatinine Ratio 11 (6-26); Bilirubin,Direct 0.1 mg/dL (0.0-0.2); Bilirubin,Indirect 0.5 mg/dL (0.0-1.2); Bilirubin,Total 0.6 mg/dL (0.3-1.0); Blood Urea Nitrogen 11 mg/dL (6-20); Calcium 9.6 mg/dL (8.6-10.3); Carbon Dioxide 25 mEq/L (23-29); Chloride 102 mEq/L (98-107); Globulin 3.3 g/dL (2.4-3.5); Glucose 95 mg/dL (70-105); Lipase 10 Units/L (11-82); Osmolality,Calculated 281 (280-300); Potassium 3.8 mEq/L (3.5-5.1); Sodium 136 mEq/L (136-145); eGFR For African Americans > 60 (> 60); eGFR For Non-African Americans > 60 (> 60)
[2017-04-21] MEDS ORDERED: *HR* Heparin 5,000 UNIT/ML VIAL SQ SCH (13:15)
[2017-04-21] MEDS ORDERED: *HR* HYDROmorphone 2 MG/ML SYRINGE ONE ×2 (13:16→15:03)
[2017-04-21] MEDS: *HR* HYDROmorphone (PF) 1 MG/ML SYRINGE IVP PRN ×2 (13:17→15:16)
[2017-04-21] MEDS: 0.9 % Sodium Chloride 1,000 ML IVC SCH ×2 (13:17→20:29)
[2017-04-21] MEDS: Ondansetron 4 MG/2 ML VIAL IVP PRN (13:18)
--- NOTE | 2017-04-21 13:23 | General Surg History&Physical ---
Date of Encounter: 04/21/17 Time of Encounter: 12:00 Assessment and Plan (1) Diverticulitis large intestine Current Visit: No Status: Acute The assessment and plan as outlined above was discussed with the patient and/or family members who expressed understanding and agreement. All questions were answered. Admit to Med/Surg under the care of Dr. Kuo CT of abdomen/pelvis with PO/IV contrast NPO IV fluids- 100ml/hour IV antibiotics- Cipro and Flagyl to start now Supportive care and pain control IS every 1 hour while awake PPI therapy daily Serial abdominal exams Qualifiers: Diverticulitis bleeding: without bleeding Diverticulitis complication: with perforation Qualified Code(s): K57.20 - Diverticulitis of large intestine with perforation and abscess without bleeding (2) DVT prophylaxis Current Visit: No Status: Acute The assessment and plan as outlined above was discussed with the patient and/or family members who expressed understanding and agreement. All questions were answered. Heparin 5,000 twice daily for DVT prophylaxis Ambulate hallways TID History of Present Illness Chief complaint: Abdominal pain, fever, general malaise HPI: Ms. Roberts is a 42 year old female who was admitted to the hospital in January of 2017 for an episode of perforated diverticulitis. She was treated with conservative measures and her symptoms did resolve. She followed up with Dr. Kuo on 03/15/18 to assess her progress and to schedule her for an interval colonoscopy. She was scheduled to have her colonoscopy today with Dr. Kuo. She reports to the outpatient endoscopy department with complaints of worsening abdominal pain. The patient reports recurrent abdominal pain which started when she was about half way through her bowel prep. She states that the pain is mostly located across her upper abdomen and that it has progressively worsened with time. She states that this pain is similar to the pain she experienced in January. She did have multiple bowel movements and states that the pain was not relieved. Her stool is clear this morning. She denies any melena or hematochezia. She admits to feeling chilled and her fever is 100.1 upon arrival to endoscopy. She denies any vomiting. Admits to poor appetite at this time. Denies any shortness of breath or chest pains. Denies any difficulty with urination. She does report a feeling of general malaise. She denies any recent sick contacts. The patient will be admitted to the hospital for further workup and treatment. Past Med Surg Social Fam HX - Past Medical History Source: patient, old records reviewed Medical history: kidney stones, other (UTI, Diverticulitis with perforation 2016, cervical dysplasia) Psychiatric history: no psych history - Past Surgical History Surgical History: , hysterectomy, ANIL/BSO, other (kidney stone removal (lithotripsy), laparoscopy at age 14 for pelvic pain, uterine ablation, D&C, ureteral stent, LEEP procedure, Tubal ligation) - Social History Smoking Status: Former smoker Smokeless Tobacco Status: No (Chantex) Alcohol use: occasionally Drug use: none Occupational status: employed Current living situation: Home - Independent Activity Level: Independent ambulation - Family History Mother Living Status: Hx Family Cardiac Disorders: Yes (HTN) Hx Family Cancer: Yes (breast cancer diagnosed at age 50) Father Living Status: Still Living Hx Family Cardiac Disorders: Yes (HTN) Hx Family Endocrine Disorder: Yes (DM) Sister Living Status: Still Living Hx Family Genitourinary Disorders: Yes (Kidney stones) Hx Family Endocrine Disorder: Yes (DM) Daughter Living Status: Still Living Medications and Allergies Diclofenac Sodium [Voltaren] 75 mg PO Q12H 02/10/17 [History] Varenicline Tartrate [Chantix Continuing Months Pack] 1 mg PO BID 02/10/17 [ History] Ciprofloxacin [Cipro] 500 mg PO BID #14 tablet 02/14/17 [Rx] Famotidine [Pepcid] 20 mg PO BID #30 tablet 02/14/17 [Rx] Ondansetron HCl [Zofran] 4 mg PO Q4H PRN #20 tablet 02/14/17 [Rx] metroNIDAZOLE [Flagyl] 500 mg PO TID #21 tablet 02/14/17 [Rx] 3 Allergy/AdvReac Type Severity Reaction Status Date / Time Amoxicillin Allergy Hives Verified 02/10/17 17:26 Penicillins Allergy Hives Verified 02/10/17 17:26 codeine AdvReac See Verified 02/10/17 17:26 Comments Review of Systems All systems PM: reviewed and no additional remarkable complaints except as stated (in the HPI) All systems PM: A 10-system review of systems was performed and is negative for pertinent findings except as documented above in the HPI. General Surgery Exam Initial Vital Signs Temp Pulse Resp BP Pulse Ox 100.6 F H 115 18 127/85 97 04/21/17 12:11 04/21/17 12:11 04/21/17 12:11 04/21/17 12:11 04/21/17 12:11 - General physical appearance well developed, well nourished, moderate distress, moderate pain - Eyes PERRL, normal ocular movement - ENT normal mucosa, atraumatic, normocephalic - Neck trachea midline - Respiratory normal respiratory effort, clear to auscultation - Cardiovascular Cardiovascular exam: Present: tachycardia - Abdomen Abdomen general surgery: Present: bowel sounds present, soft, tender Abdominal Tenderness: Present: epigastic, RUQ, LUQ, suprapubic - Integumentary Integumentary general surgery: Present: warm and dry - Neurologic Present: CN 2-12 grossly intact - Psychiatric Psychiatric general surgery: Present: appropriate, oriented to person, oriented to place, oriented to time, speech is normal, memory intact Results - Labs 04/21/17 12:33 04/21/17 12:33 Abnormal lab results WBC 15.6 K/mcL (4.3-11.1) H 04/21/17 12:33 Plt Count 402 K/mcL (140-400) H 04/21/17 12:33 Neutrophils # 12.6 K/mcL (1.6-8.9) H 04/21/17 12:33 Monocytes # 1.7 K/mcL (0.0-1.3) H 04/21/17 12:33 Lipase 10 Units/L (11-82) L 04/21/17 12:33 Urine Ketones 15 mg/dL (Negative) H 04/21/17 12:24 Urine Blood Moderate (Negative) H 04/21/17 12:24 Urine Microscopic RBC 15-30 per hpf (0-3) H 04/21/17 12:24 Ur Squamous Epith Cells Many per lpf (None-Few) H 04/21/17 12:24 Diabetes panel 04/21/17 Range/Units 12:33 Sodium 136 (136-145) mEq/L Potassium 3.8 (3.5-5.1) mEq/L Chloride 102 (98-107) mEq/L Carbon Dioxide 25 (23-29) mEq/L BUN 11 (6-20) mg/dL Creatinine 0.99 (0.60-1.20) mg/dL Glucose 95 (70-105) mg/dL Calcium 9.6 (8.6-10.3) mg/dL AST 23 (13-39) Units/L ALT 28 (7-52) Units/L Alkaline Phosphatase 85 (34-104) Units/L Albumin 4.7 (3.5-5.7) g/dL Calcium panel 04/21/17 Range/Units 12:33 Calcium 9.6 (8.6-10.3) mg/dL Albumin 4.7 (3.5-5.7) g/dL Pituitary panel 04/21/17 Range/Units 12:33 Sodium 136 (136-145) mEq/L Potassium 3.8 (3.5-5.1) mEq/L Chloride 102 (98-107) mEq/L Carbon Dioxide 25 (23-29) mEq/L BUN 11 (6-20) mg/dL Creatinine 0.99 (0.60-1.20) mg/dL Glucose 95 (70-105) mg/dL Calcium 9.6 (8.6-10.3) mg/dL Adrenal panel 04/21/17 Range/Units 12:33 Sodium 136 (136-145) mEq/L Potassium 3.8 (3.5-5.1) mEq/L Chloride 102 (98-107) mEq/L Carbon Dioxide 25 (23-29) mEq/L BUN 11 (6-20) mg/dL Creatinine 0.99 (0.60-1.20) mg/dL Glucose 95 (70-105) mg/dL Calcium 9.6 (8.6-10.3) mg/dL Total Bilirubin 0.6 (0.3-1.0) mg/dL AST 23 (13-39) Units/L ALT 28 (7-52) Units/L Alkaline Phosphatase 85 (34-104) Units/L Albumin 4.7 (3.5-5.7) g/dL All other labs normal. - Attending Attestation For this encounter, I have reviewed the BODY WORKER or PA documentation, treatment plan, and medical decision making; and I have had face to face time with this patient.
[2017-04-21] MEDS ORDERED: Acetaminophen IV 1,000 MG/100 ML INFUS..BTL IVPB PRN (14:06)
[2017-04-21] MEDS: MetroNIDAZOLE 500 MG/100 ML 500 MG/100 ML BAG IVPB SCH (17:04)
[2017-04-21] MEDS: *HR* Heparin 5,000 UNIT/ML VIAL SQ SCH (17:44)
[2017-04-21] MEDS: Ketorolac 15 MG/ML VIAL IVP PRN (17:48)
[2017-04-22] MEDS: MetroNIDAZOLE 500 MG/100 ML 500 MG/100 ML BAG IVPB SCH ×3 (00:48→14:59)
[2017-04-22] MEDS: Ketorolac 15 MG/ML VIAL IVP PRN ×3 (00:49→18:34)
[2017-04-22 05:33] LABS: Basophils % 0.2 %; Eosinophils % 0.3 %; Hematocrit 36.6 % (35.3-44.9); Immature Granulocytes % 0.6 % (0-4); Lymphocytes # 1.7 K/mcL (0.6-4.6); Lymphocytes % 12.2 %; Mean Corpuscular HGB Conc 32.8 g/dL (31.6-35.5); Mean Corpuscular Hemoglobin 30.4 pg (28.0-33.3); Mean Corpuscular Volume 92.7 fL (83.0-100.0); Mean Platelet Volume 10.6 fL (9.4-12.4); Monocytes # 1.5 K/mcL (0.0-1.3); Monocytes % 10.9 %; Neutrophils # 10.6 K/mcL (1.6-8.9); Platelet Count 312 K/mcL (140-400); Red Blood Count 3.95 M/mcL (3.82-4.97); Red Cell Distribution Width 14.1 % (11.5-14.5); Segmented Neutrophils % 75.8 %
[2017-04-22] MEDS: *HR* Heparin 5,000 UNIT/ML VIAL SQ SCH ×2 (06:06→19:36)
[2017-04-22] MEDS: *HR* HYDROmorphone (PF) 1 MG/ML SYRINGE IVP PRN ×3 (06:09→21:06)
[2017-04-22] MEDS: Pantoprazole 40 MG VIAL IVP SCH (08:58)
[2017-04-22] MEDS: 0.9 % Sodium Chloride 1,000 ML IVC SCH ×2 (08:59→18:35)
[2017-04-22] MEDS ORDERED: Lidocaine -MPF 1% 5 ML AMPUL INFILT ONE (10:36)
[2017-04-22] MEDS ORDERED: Dextrose Gel 15 GM/37.5 ML TUBE PO PRN ×2 (10:39)
[2017-04-22] MEDS ORDERED: D5% in Water 1,000 ML IVC PRN (10:39)
[2017-04-22] MEDS ORDERED: *HR* Dextrose 50 % in Water (Syg) 50 ML SYRINGE IVP PRN (10:39)
--- NOTE | 2017-04-22 11:04 | General Surgery Progress Note ---
Date of Encounter: 04/22/17 Time of Encounter: 10:45 - Assessment and Plan (1) Diverticulitis large intestine Current Visit: No Status: Acute CT complete- Findings are consistent with acute sigmoid diverticulitis with a 4.1 cm focal diverticular abscess just superior to the inflamed sigmoid colon. Will discuss with IR possible drainage of abscess NPO except ice chips IV fluids- 100ml/hour (adjust with start of TPN for total fluid rate of 100ml/ hour) PICC line placement Start TPN today (Total fuid rate 100ml/hour) It Network Architect consult for start and management of TPN IV antibiotics- Cipro and Flagyl to start now Supportive care and pain control IS every 1 hour while awake PPI therapy daily Serial abdominal exams Qualifiers: Diverticulitis bleeding: without bleeding Diverticulitis complication: with perforation Qualified Code(s): K57.20 - Diverticulitis of large intestine with perforation and abscess without bleeding (2) DVT prophylaxis Current Visit: No Status: Acute Heparin 5,000 twice daily for DVT prophylaxis Ambulate hallways TID Subjective Patient reports: no new complaints, feels better, still having pain, pain is less, voiding w/o difficulty, flatus, bowel movement, diarrhea, afebrile Objective Vital Signs - Last 8 Hours Temp Pulse Resp BP Pulse Ox 04/22/17 06:53 98.0 F 88 14 106/65 94 04/22/17 03:54 98.2 F 76 14 101/62 95 Intake and Output 04/21/17 04/22/17 04/22/17 23:59 07:59 15:59 Intake Total 1100 / 1100 Output Total 400 / 400 Balance 700 / 700 Intake: IV Fluids 1100 / 1100 0.9 % Sodium Chloride 1,000 ML 1000 / 1000 @ 100 mls/hr IVC .Q10H [facility] Rx#: [id number] Flagyl Premix 500 MG/100 ML 500 100 / 100 mg In 100 ml @ 100 mls/hr IVPB Q8HR [facility] Rx#:[id number] Oral 0 / 0 Output: Urine 0 / 0 Urine/Stool Mix 400 / 400 Other: Meal NPO Weight 79.56 kg Blood Glucose* 78 Patient Weight 04/22/17 23:59 Weight 79.56 kg - General physical appearance well developed, well nourished, no distress, moderate pain - Eyes normal ocular movement - ENT dry mucosa, atraumatic, normocephalic - Neck Neck exam: trachea midline - Respiratory normal respiratory effort, clear to auscultation - Cardiovascular Cardiovascular exam: Present: RRR - Abdomen Abdomen: Present: bowel sounds present, soft, tender Abdominal Tenderness: suprapubic - Neurologic CN 2-12 grossly intact - Psychiatric oriented to time, oriented to person, oriented to place, speech is normal, memory intact - Labs 04/22/17 04:53 04/21/17 12:33 Consult Discharge Plan - Plan Referrals: Malathi Mcknight [Primary Care Provider] - - Attending Attestation For this encounter, I have reviewed the INTERIOR DESIGN FACULTY MEMBER or PA documentation, treatment plan, and medical decision making; and I have had face to face time with this patient.
[2017-04-22] MEDS ORDERED: Nicotine 14 MG PATCH.TD24 TD PRN (11:05)
[2017-04-22] MEDS ORDERED: Saliva Stimulant 100ml BOTTLE PO PRN (11:05)
[2017-04-22] MEDS ORDERED: D10% in Water 500 ML IVC PRN (11:08)
[2017-04-22] MEDS: Insulin LISPRO 300 UNITS/3 ML VIAL SQ SCH ×3 (13:55→23:59)
[2017-04-22] MEDS ORDERED: Clinimix E 5%-15% SOLUTION 2,000 ML with MVI, adult with vitamin K 10 ML IVC SCH (17:00)
[2017-04-22] MEDS: Ondansetron 4 MG/2 ML VIAL IVP PRN (21:06)
[2017-04-23] MEDS: MetroNIDAZOLE 500 MG/100 ML 500 MG/100 ML BAG IVPB SCH ×4 (00:22→23:54)
[2017-04-23] MEDS: Ketorolac 15 MG/ML VIAL IVP PRN ×2 (00:26→06:43)
[2017-04-23 05:18] LABS: Basophils % 0.3 %; Eosinophils # 0.1 K/mcL (0.0-0.6); Eosinophils % 1.3 %; Hematocrit 34.3 % (35.3-44.9); Hemoglobin 11.2 g/dL (11.5-15.4); Immature Granulocytes % 0.3 % (0-4); Lymphocytes # 1.5 K/mcL (0.6-4.6); Lymphocytes % 13.8 %; Mean Corpuscular HGB Conc 32.7 g/dL (31.6-35.5); Mean Corpuscular Hemoglobin 30.3 pg (28.0-33.3); Mean Corpuscular Volume 92.7 fL (83.0-100.0); Mean Platelet Volume 10.7 fL (9.4-12.4); Monocytes # 1.2 K/mcL (0.0-1.3); Monocytes % 10.9 %; Neutrophils # 8.2 K/mcL (1.6-8.9); Platelet Count 308 K/mcL (140-400); Red Cell Distribution Width 13.8 % (11.5-14.5); Segmented Neutrophils % 73.4 %
--- NOTE | 2017-04-23 05:25 | General Surgery Progress Note ---
Date of Encounter: 04/23/17 Time of Encounter: 05:24 - Assessment and Plan (1) Diverticulitis large intestine Current Visit: No Status: Acute 04/22 CT Impression: Findings are consistent with acute sigmoid diverticulitis with a 4.1 cm focal diverticular abscess just superior to the inflamed sigmoid colon. WBC downtrending - Leukocytosis resolved from yesterday. Continue IV antibiotics- Cipro and Flagyl (Day 2) NPO except ice chips IV fluids- 100ml/hour (adjust with start of TPN for total fluid rate of 100ml/ hour) TPN initiated yesterday (Total fuid rate 100ml/hour) Tool Grinder consult for start and management of TPN Supportive care and pain control IS every 1 hour while awake PPI therapy daily Serial abdominal exams Qualifiers: Diverticulitis bleeding: without bleeding Diverticulitis complication: with perforation Qualified Code(s): K57.20 - Diverticulitis of large intestine with perforation and abscess without bleeding (2) DVT prophylaxis Current Visit: No Status: Acute Heparin 5000 U SubQ BID Ambulate TID with assistance, or as tolerated EPCD Objective Vital Signs - Last 8 Hours Temp Pulse Resp BP Pulse Ox 04/23/17 04:24 97.7 F 78 14 102/63 98 04/22/17 22:25 98.3 F 83 16 93/54 93 Intake and Output 04/22/17 04/22/17 04/23/17 15:59 23:59 07:59 Intake Total 100 / 100 300 / 300 0 / 0 Output Total 300 / 300 375 / 375 900 / 900 Balance -200 / -200 -75 / -75 -900 / -900 Intake: IV Fluids 100 / 100 300 / 300 Cipro Premix 400 MG/200 ML 400 200 / 200 mg In 200 ml @ 200 mls/hr IVPB Q12HR [facility] Rx#:[id number] Flagyl Premix 500 MG/100 ML 500 100 / 100 100 / 100 mg In 100 ml @ 100 mls/hr IVPB Q8HR [facility] Rx#:[id number] Oral 0 / 0 0 / 0 Output: Urine 300 / 300 375 / 375 900 / 900 Other: Meal NPO Weight 81.783 kg Blood Glucose* 96 114 94 Patient Weight 04/23/17 23:59 Weight 81.783 kg - Labs 04/23/17 04:13 04/21/17 12:33 Consult Discharge Plan - Plan Referrals: Malathi Mcknight [Primary Care Provider] -
[2017-04-23] MEDS: Insulin LISPRO 300 UNITS/3 ML VIAL SQ SCH ×6 (05:29→23:54)
[2017-04-23 05:46] LABS: BUN/Creatinine Ratio 15 (6-26); Blood Urea Nitrogen 10 mg/dL (6-20); Calcium 8.1 mg/dL (8.6-10.3); Carbon Dioxide 24 mEq/L (23-29); Chloride 108 mEq/L (98-107); Glucose 89 mg/dL (70-105); Magnesium 1.8 mg/dL (1.6-2.6); Osmolality,Calculated 283 (280-300); Phosphorous 2.6 mg/dL (2.7-4.5); Potassium 3.6 mEq/L (3.5-5.1); Sodium 137 mEq/L (136-145); Triglycerides 98 mg/dL (< 150); eGFR For African Americans > 60 (> 60); eGFR For Non-African Americans > 60 (> 60)
[2017-04-23] MEDS: 0.9 % Sodium Chloride 1,000 ML IVC SCH ×2 (07:05→13:55)
[2017-04-23] MEDS: *HR* Heparin 5,000 UNIT/ML VIAL SQ SCH ×2 (07:07→18:16)
[2017-04-23] MEDS: Pantoprazole 40 MG VIAL IVP SCH (08:45)
[2017-04-23] MEDS: *HR* HYDROmorphone (PF) 1 MG/ML SYRINGE IVP PRN ×3 (08:46→22:01)
--- NOTE | 2017-04-23 09:54 | General Surgery Progress Note ---
<Carmen Brady - Last Filed: 04/23/17 12:16> Date of Encounter: 04/23/17 Time of Encounter: 09:52 - Assessment and Plan (1) Diverticulitis of colon with perforation Current Visit: Yes Status: Acute CT complete- Findings are consistent with acute sigmoid diverticulitis with a 4.1 cm focal diverticular abscess just superior to the inflamed sigmoid colon. NPO except ice chips IV fluids- 25ml/hour (adjust with start of TPN for total fluid rate of 100ml/ hour) PICC line placement Start TPN today (Total fuid rate 100ml/hour) Food Service Hotel Runner consult for management of TPN IV antibiotics- Cipro and Flagyl Supportive care and pain control IS every 1 hour while awake PPI therapy daily Serial abdominal exams Repeat am labs Bentyl for abdominal cramping Plans for surgical intervention Tuesday Qualifiers: Diverticulitis bleeding: without bleeding Qualified Code(s): K57.20 - Diverticulitis of large intestine with perforation and abscess without bleeding (2) DVT prophylaxis Current Visit: Yes Status: Acute EPCDs while in bed Sub Q heparin Ambulate at least TID Subjective Patient reports: feels better, still having pain, pain is less, voiding w/o difficulty, flatus, bowel movement, diarrhea, afebrile Objective Vital Signs - Last 8 Hours Temp Pulse Resp BP Pulse Ox 04/23/17 08:00 97.7 F 77 16 106/69 97 04/23/17 04:24 97.7 F 78 14 102/63 98 Intake and Output 04/22/17 04/23/17 04/23/17 23:59 07:59 15:59 Intake Total 300 / 300 350 / 350 0 / 0 Output Total 375 / 375 900 / 900 900 / 900 Balance -75 / -75 -550 / -550 -900 / -900 Intake: IV Fluids 300 / 300 350 / 350 Cipro Premix 400 MG/200 ML 400 200 / 200 mg In 200 ml @ 200 mls/hr IVPB Q12HR [facility] Rx#:[id number] Intralipid 20% 250 ML @ 21 mls/ 250 / 250 hr IVPB DAILY@1700 [facility] Rx#: [id number] Flagyl Premix 500 MG/100 ML 500 100 / 100 100 / 100 mg In 100 ml @ 100 mls/hr IVPB Q8HR [facility] Rx#:[id number] Oral 0 / 0 0 / 0 0 / 0 Output: Urine 375 / 375 900 / 900 Urine/Stool Mix 900 / 900 Other: Meal npo Stool Consistency liquid Stool Color Brown Weight 81.783 kg Blood Glucose* 114 94 112 Patient Weight 04/23/17 23:59 Weight 81.783 kg - General physical appearance well nourished, no distress, moderate pain - Eyes normal ocular movement - ENT atraumatic, normocephalic - Neck Neck exam: no masses, trachea midline - Respiratory normal expansion, normal respiratory effort, clear to auscultation - Cardiovascular Cardiovascular exam: Present: RRR - Abdomen Abdomen: Present: bowel sounds present, soft, tender Abdominal Tenderness: RLQ, LLQ Hernia: none - Integumentary no rash, no growths - Neurologic CN 2-12 grossly intact, normal coordination, normal sensation - Musculoskeletal normal gait, normal posture - Psychiatric oriented to time, oriented to person, oriented to place, speech is normal, memory intact - Labs 04/23/17 04:13 04/23/17 04:13 Diabetes panel 04/23/17 Range/Units 04:13 Sodium 137 (136-145) mEq/L Potassium 3.6 (3.5-5.1) mEq/L Chloride 108 H (98-107) mEq/L Carbon Dioxide 24 (23-29) mEq/L BUN 10 (6-20) mg/dL Creatinine 0.65 (0.60-1.20) mg/dL Glucose 89 (70-105) mg/dL Calcium 8.1 L (8.6-10.3) mg/dL Triglycerides 98 (< 150) mg/dL Calcium panel 04/23/17 Range/Units 04:13 Calcium 8.1 L (8.6-10.3) mg/dL Phosphorus 2.6 L (2.7-4.5) mg/dL Pituitary panel 04/23/17 Range/Units 04:13 Sodium 137 (136-145) mEq/L Potassium 3.6 (3.5-5.1) mEq/L Chloride 108 H (98-107) mEq/L Carbon Dioxide 24 (23-29) mEq/L BUN 10 (6-20) mg/dL Creatinine 0.65 (0.60-1.20) mg/dL Glucose 89 (70-105) mg/dL Calcium 8.1 L (8.6-10.3) mg/dL Adrenal panel 04/23/17 Range/Units 04:13 Sodium 137 (136-145) mEq/L Potassium 3.6 (3.5-5.1) mEq/L Chloride 108 H (98-107) mEq/L Carbon Dioxide 24 (23-29) mEq/L BUN 10 (6-20) mg/dL Creatinine 0.65 (0.60-1.20) mg/dL Glucose 89 (70-105) mg/dL Calcium 8.1 L (8.6-10.3) mg/dL Consult Discharge Plan - Plan Referrals: Malathi Mcknight [Primary Care Provider] - <Geraldine Pritchard - Last Filed: 04/23/17 13:30> Date of Encounter: 04/23/17 - Assessment and Plan (1) Diverticulitis of colon with perforation Current Visit: Yes Status: Acute npo, ivf hydration and TPN continue abx patient improving pain better and not as intense passing flatus OOB to chair and ambulate gi/dvt prophylaxis Qualifiers: Diverticulitis bleeding: without bleeding Qualified Code(s): K57.20 - Diverticulitis of large intestine with perforation and abscess without bleeding (2) Leukocytosis Current Visit: Yes Status: Resolved elevated wbc last few days now normal, continue to trend Qualifiers: Leukocytosis type: unspecified Qualified Code(s): D72.829 - Elevated white blood cell count, unspecified (3) DVT prophylaxis Current Visit: Yes Status: Acute Subjective Patient reports: feels better, still having pain, pain is less, voiding w/o difficulty, flatus, afebrile Objective Vital Signs - Last 8 Hours Temp Pulse Resp BP Pulse Ox 04/23/17 10:20 97.6 F 80 14 107/69 95 04/23/17 08:00 97.7 F 77 16 106/69 97 Intake and Output 04/22/17 04/23/17 04/23/17 23:59 07:59 15:59 Intake Total 300 / 300 350 / 350 150 / 150 Output Total 375 / 375 900 / 900 900 / 900 Balance -75 / -75 -550 / -550 -750 / -750 Intake: IV Fluids 300 / 300 350 / 350 100 / 100 Cipro Premix 400 MG/200 ML 400 200 / 200 mg In 200 ml @ 200 mls/hr IVPB Q12HR [facility] Rx#:[id number] Intralipid 20% 250 ML @ 21 mls/ 250 / 250 hr IVPB DAILY@1700 [facility] Rx#: [id number] Flagyl Premix 500 MG/100 ML 500 100 / 100 100 / 100 100 / 100 mg In 100 ml @ 100 mls/hr IVPB Q8HR [facility] Rx#:[id number] Oral 0 / 0 0 / 0 50 / 50 Output: Urine 375 / 375 900 / 900 0 / 0 Urine/Stool Mix 900 / 900 Other: Meal NPO Stool Consistency liquid Stool Color Brown Weight 81.783 kg Blood Glucose* 114 94 107 Patient Weight 04/23/17 23:59 Weight 81.783 kg - General physical appearance well developed, well nourished, no distress - Eyes PERRL, normal ocular movement - ENT atraumatic, normocephalic - Neck Neck exam: trachea midline - Respiratory normal expansion, normal respiratory effort - Cardiovascular Cardiovascular exam: Present: RRR - Abdomen Abdomen: Present: bowel sounds present, soft, tender. Absent: distended, guarding, rebound Abdominal Tenderness: LLQ - Integumentary no rash, no growths - Neurologic CN 2-12 grossly intact, normal coordination, normal sensation - Musculoskeletal normal posture - Psychiatric oriented to time, oriented to person, oriented to place, speech is normal, memory intact - Labs 04/23/17 04:13 04/23/17 04:13 Diabetes panel 04/23/17 Range/Units 04:13 Sodium 137 (136-145) mEq/L Potassium 3.6 (3.5-5.1) mEq/L Chloride 108 H (98-107) mEq/L Carbon Dioxide 24 (23-29) mEq/L BUN 10 (6-20) mg/dL Creatinine 0.65 (0.60-1.20) mg/dL Glucose 89 (70-105) mg/dL Calcium 8.1 L (8.6-10.3) mg/dL Triglycerides 98 (< 150) mg/dL Calcium panel 04/23/17 Range/Units 04:13 Calcium 8.1 L (8.6-10.3) mg/dL Phosphorus 2.6 L (2.7-4.5) mg/dL Pituitary panel 04/23/17 Range/Units 04:13 Sodium 137 (136-145) mEq/L Potassium 3.6 (3.5-5.1) mEq/L Chloride 108 H (98-107) mEq/L Carbon Dioxide 24 (23-29) mEq/L BUN 10 (6-20) mg/dL Creatinine 0.65 (0.60-1.20) mg/dL Glucose 89 (70-105) mg/dL Calcium 8.1 L (8.6-10.3) mg/dL Adrenal panel 04/23/17 Range/Units 04:13 Sodium 137 (136-145) mEq/L Potassium 3.6 (3.5-5.1) mEq/L Chloride 108 H (98-107) mEq/L Carbon Dioxide 24 (23-29) mEq/L BUN 10 (6-20) mg/dL Creatinine 0.65 (0.60-1.20) mg/dL Glucose 89 (70-105) mg/dL Calcium 8.1 L (8.6-10.3) mg/dL - Attending Attestation I have personally performed a face to face evaluation on this patient. I have reviewed and agree with the care plan. History and Exam by me shows:
[2017-04-23] MEDS ORDERED: 0.9 % Sodium Chloride 1,000 ML IVC SCH (12:21)
[2017-04-23] MEDS: Ketorolac 15 MG/ML VIAL IVP SCH ×3 (13:01→23:54)
[2017-04-23] MEDS ORDERED: Clinimix E 5%-15% SOLUTION 2,000 ML with MVI, adult with vitamin K 10 ML IVC SCH (17:00)
[2017-04-24] MEDS: Insulin LISPRO 300 UNITS/3 ML VIAL SQ SCH ×5 (03:51→21:02)
[2017-04-24] MEDS: *HR* Heparin 5,000 UNIT/ML VIAL SQ SCH ×2 (06:12→18:00)
[2017-04-24] MEDS: Ketorolac 15 MG/ML VIAL IVP SCH ×3 (06:12→18:00)
[2017-04-24 07:54] LABS: Basophils % 0.4 %; Eosinophils # 0.3 K/mcL (0.0-0.6); Eosinophils % 3.5 %; Hematocrit 34.8 % (35.3-44.9); Hemoglobin 11.4 g/dL (11.5-15.4); Immature Granulocytes % 0.3 % (0-4); Lymphocytes # 1.2 K/mcL (0.6-4.6); Lymphocytes % 16.7 %; Mean Corpuscular HGB Conc 32.8 g/dL (31.6-35.5); Mean Corpuscular Hemoglobin 30.2 pg (28.0-33.3); Mean Corpuscular Volume 92.3 fL (83.0-100.0); Mean Platelet Volume 10.8 fL (9.4-12.4); Monocytes # 0.9 K/mcL (0.0-1.3); Monocytes % 12.3 %; Neutrophils # 4.8 K/mcL (1.6-8.9); Platelet Count 333 K/mcL (140-400); Red Blood Count 3.77 M/mcL (3.82-4.97); Red Cell Distribution Width 13.6 % (11.5-14.5); Segmented Neutrophils % 66.8 %
[2017-04-24 08:15] LABS: BUN/Creatinine Ratio 19 (6-26); Blood Urea Nitrogen 12 mg/dL (6-20); Calcium 8.4 mg/dL (8.6-10.3); Carbon Dioxide 26 mEq/L (23-29); Chloride 110 mEq/L (98-107); Glucose 84 mg/dL (70-105); Magnesium 1.8 mg/dL (1.6-2.6); Osmolality,Calculated 291 (280-300); Phosphorous 3.1 mg/dL (2.7-4.5); Potassium 3.8 mEq/L (3.5-5.1); Sodium 141 mEq/L (136-145); eGFR For African Americans > 60 (> 60); eGFR For Non-African Americans > 60 (> 60)
[2017-04-24] MEDS: MetroNIDAZOLE 500 MG/100 ML 500 MG/100 ML BAG IVPB SCH ×2 (08:55→17:46)
[2017-04-24] MEDS: Pantoprazole 40 MG VIAL IVP SCH (08:55)
[2017-04-24] MEDS: Ondansetron 4 MG/2 ML VIAL IVP PRN (09:01)
--- NOTE | 2017-04-24 13:35 | General Surgery Progress Note ---
Date of Encounter: 04/24/17 Time of Encounter: 13:00 - Assessment and Plan (1) Diverticulitis of colon with perforation Current Visit: Yes Status: Acute npo, ivf hydration and TPN continue abx patient improving pain almost resolved passing flatus and had bm OOB to chair and ambulate gi/dvt prophylaxis Qualifiers: Diverticulitis bleeding: without bleeding Qualified Code(s): K57.20 - Diverticulitis of large intestine with perforation and abscess without bleeding (2) DVT prophylaxis Current Visit: Yes Status: Acute heparin sq Subjective Patient reports: no new complaints, feels better, still having pain, pain is less, flatus, bowel movement, afebrile Objective Vital Signs - Last 8 Hours Temp Pulse Resp BP Pulse Ox 04/24/17 10:50 98.2 F 79 14 120/69 96 04/24/17 07:35 97.6 F 72 14 113/75 96 Intake and Output 04/23/17 04/24/17 04/24/17 23:59 07:59 15:59 Intake Total 1665 / 1665 100 / 100 60 / 60 Output Total 0 / 0 1700 / 1700 400 / 400 Balance 1665 / 1665 -1600 / -1600 -340 / -340 Intake: IV Fluids 1665 / 1665 100 / 100 0.9 % Sodium Chloride 1,000 ML 15 / 15 @ 25 mls/hr IVC .Q24H [facility] Rx#: [id number] Clinimix E 5%-15% SOLUTION 2, 1350 / 1350 000 ML @ 50 mls/hr IVC .Q24H [facility] with M.v.i. Adult 10 ml Rx# :[id number] Cipro Premix 400 MG/200 ML 400 200 / 200 mg In 200 ml @ 200 mls/hr IVPB Q12HR [facility] Rx#:[id number] Flagyl Premix 500 MG/100 ML 500 100 / 100 100 / 100 mg In 100 ml @ 100 mls/hr IVPB Q8HR [facility] Rx#:[id number] Oral 0 / 0 0 / 0 60 / 60 Output: Urine 0 / 0 1700 / 1700 400 / 400 Other: Meal ice chips Blood Glucose* 119 125 116 - General physical appearance well developed, well nourished, no distress - Eyes PERRL, normal ocular movement - ENT normal mucosa, normocephalic - Neck Neck exam: trachea midline - Respiratory normal expansion, clear to auscultation - Cardiovascular Cardiovascular exam: Present: RRR - Abdomen Abdomen: Present: bowel sounds present, soft, non tender. Absent: guarding, rebound - Integumentary no growths - Neurologic CN 2-12 grossly intact - Musculoskeletal normal posture - Psychiatric oriented to time, oriented to person, memory intact - Labs 04/24/17 07:25 04/24/17 07:25 Diabetes panel 04/24/17 Range/Units 07:25 Sodium 141 (136-145) mEq/L Potassium 3.8 (3.5-5.1) mEq/L Chloride 110 H (98-107) mEq/L Carbon Dioxide 26 (23-29) mEq/L BUN 12 (6-20) mg/dL Creatinine 0.64 (0.60-1.20) mg/dL Glucose 84 (70-105) mg/dL Calcium 8.4 L (8.6-10.3) mg/dL Calcium panel 04/24/17 Range/Units 07:25 Calcium 8.4 L (8.6-10.3) mg/dL Phosphorus 3.1 (2.7-4.5) mg/dL Pituitary panel 04/24/17 Range/Units 07:25 Sodium 141 (136-145) mEq/L Potassium 3.8 (3.5-5.1) mEq/L Chloride 110 H (98-107) mEq/L Carbon Dioxide 26 (23-29) mEq/L BUN 12 (6-20) mg/dL Creatinine 0.64 (0.60-1.20) mg/dL Glucose 84 (70-105) mg/dL Calcium 8.4 L (8.6-10.3) mg/dL Adrenal panel 04/24/17 Range/Units 07:25 Sodium 141 (136-145) mEq/L Potassium 3.8 (3.5-5.1) mEq/L Chloride 110 H (98-107) mEq/L Carbon Dioxide 26 (23-29) mEq/L BUN 12 (6-20) mg/dL Creatinine 0.64 (0.60-1.20) mg/dL Glucose 84 (70-105) mg/dL Calcium 8.4 L (8.6-10.3) mg/dL Consult Discharge Plan - Plan Referrals: Malathi Mcknight [Primary Care Provider] -
[2017-04-24] MEDS ORDERED: Clinimix E 5%-15% SOLUTION 2,000 ML with MVI, adult with vitamin K 10 ML IVC SCH (17:00)
[2017-04-24] MEDS: *HR* HYDROmorphone (PF) 1 MG/ML SYRINGE IVP PRN (17:30)
[2017-04-25] MEDS: Ketorolac 15 MG/ML VIAL IVP SCH ×3 (00:08→12:06)
[2017-04-25] MEDS: MetroNIDAZOLE 500 MG/100 ML 500 MG/100 ML BAG IVPB SCH ×2 (00:12→09:57)
[2017-04-25] MEDS: Insulin LISPRO 300 UNITS/3 ML VIAL SQ SCH ×6 (01:49→21:43)
[2017-04-25] MEDS: *HR* Heparin 5,000 UNIT/ML VIAL SQ SCH ×2 (05:51→17:28)
[2017-04-25 06:38] LABS: Basophils % 0.4 %; Eosinophils # 0.3 K/mcL (0.0-0.6); Eosinophils % 4.1 %; Hemoglobin 11.2 g/dL (11.5-15.4); Immature Granulocytes % 0.3 % (0-4); Lymphocytes # 1.9 K/mcL (0.6-4.6); Lymphocytes % 24.6 %; Mean Corpuscular Hemoglobin 29.5 pg (28.0-33.3); Mean Corpuscular Volume 92.1 fL (83.0-100.0); Mean Platelet Volume 11.4 fL (9.4-12.4); Monocytes # 0.8 K/mcL (0.0-1.3); Neutrophils # 4.5 K/mcL (1.6-8.9); Platelet Count 372 K/mcL (140-400); Red Cell Distribution Width 13.4 % (11.5-14.5); Segmented Neutrophils % 59.6 %
[2017-04-25] MEDS: Pantoprazole 40 MG VIAL IVP SCH (10:10)
[2017-04-25] MEDS: Ondansetron 4 MG/2 ML VIAL IVP PRN (10:25)
[2017-04-25 10:45] LABS: BUN/Creatinine Ratio 22 (6-26); Blood Urea Nitrogen 14 mg/dL (6-20); Calcium 8.3 mg/dL (8.6-10.3); Carbon Dioxide 22 mEq/L (23-29); Chloride 108 mEq/L (98-107); Glucose 83 mg/dL (70-105); Magnesium 1.9 mg/dL (1.6-2.6); Osmolality,Calculated 288 (280-300); Phosphorous 4.2 mg/dL (2.7-4.5); Potassium 3.7 mEq/L (3.5-5.1); Sodium 139 mEq/L (136-145); eGFR For African Americans > 60 (> 60); eGFR For Non-African Americans > 60 (> 60)
--- NOTE | 2017-04-25 11:14 | General Surgery Progress Note ---
Date of Encounter: 04/25/17 Time of Encounter: 10:00 - Assessment and Plan (1) Diverticulitis large intestine Current Visit: No Status: Acute CT complete- Findings are consistent with acute sigmoid diverticulitis with a 4.1 cm focal diverticular abscess just superior to the inflamed sigmoid colon. IR unable to safely drain fluid collection Advance to clear liquid diet NPO after midnight Tuesday for surgery on Tuesday04/27/17 IV fluids- stop MIV PICC line placement Continue TPN with goal total fluid rate being 83.3ml/hour (goal TPN rate) Ccna for management of TPN IV antibiotics- Change to Mefoxin due to allergic reaction to cipro Supportive care and pain control IS every 1 hour while awake PPI therapy daily Serial abdominal exams Qualifiers: Diverticulitis bleeding: without bleeding Diverticulitis complication: with perforation Qualified Code(s): K57.20 - Diverticulitis of large intestine with perforation and abscess without bleeding (2) DVT prophylaxis Current Visit: Yes Status: Acute Heparin 5,000 twice daily for DVT prophylaxis Ambulate hallways TID Subjective Patient reports: no new complaints, feels better, still having pain, pain is less, voiding w/o difficulty, flatus, bowel movement, afebrile Objective Vital Signs - Last 8 Hours Temp Pulse Resp BP Pulse Ox 04/25/17 11:05 98.3 F 75 14 119/77 96 04/25/17 06:51 97.5 F L 81 14 114/70 97 04/25/17 04:09 97.9 F 71 16 99/62 96 Intake and Output 04/24/17 04/25/17 04/25/17 23:59 07:59 15:59 Intake Total 300 / 300 100 / 100 Output Total 1800 / 1800 700 / 700 Balance 300 / 300 -1700 / -1700 -700 / -700 Intake: IV Fluids 300 / 300 100 / 100 Cipro Premix 400 MG/200 ML 400 200 / 200 mg In 200 ml @ 200 mls/hr IVPB Q12HR [facility] Rx#:[id number] Flagyl Premix 500 MG/100 ML 500 100 / 100 100 / 100 mg In 100 ml @ 100 mls/hr IVPB Q8HR [facility] Rx#:[id number] Oral 0 / 0 0 / 0 Output: Urine 1800 / 1800 700 / 700 Other: Meal NPO Dinner # Voids 1 1 Weight 81.78 kg Blood Glucose* 103 84 94 Patient Weight 04/25/17 23:59 Weight 81.78 kg - General physical appearance well developed, well nourished, no distress - Eyes normal ocular movement - ENT normal mucosa, atraumatic, normocephalic - Neck Neck exam: trachea midline - Respiratory normal respiratory effort, clear to auscultation - Cardiovascular Cardiovascular exam: Present: RRR - Abdomen Abdomen: Present: bowel sounds present, soft, tender (minimal, lower abdomen) - Integumentary no rash, no growths, no abnormal pigmentation - Neurologic CN 2-12 grossly intact - Psychiatric oriented to time, oriented to person, oriented to place, speech is normal, memory intact - Labs 04/25/17 04:20 04/25/17 04:20 Diabetes panel 04/25/17 Range/Units 04:20 Sodium 139 (136-145) mEq/L Potassium 3.7 (3.5-5.1) mEq/L Chloride 108 H (98-107) mEq/L Carbon Dioxide 22 L (23-29) mEq/L BUN 14 (6-20) mg/dL Creatinine 0.63 (0.60-1.20) mg/dL Glucose 83 (70-105) mg/dL Calcium 8.3 L (8.6-10.3) mg/dL Calcium panel 04/25/17 Range/Units 04:20 Calcium 8.3 L (8.6-10.3) mg/dL Phosphorus 4.2 (2.7-4.5) mg/dL Pituitary panel 04/25/17 Range/Units 04:20 Sodium 139 (136-145) mEq/L Potassium 3.7 (3.5-5.1) mEq/L Chloride 108 H (98-107) mEq/L Carbon Dioxide 22 L (23-29) mEq/L BUN 14 (6-20) mg/dL Creatinine 0.63 (0.60-1.20) mg/dL Glucose 83 (70-105) mg/dL Calcium 8.3 L (8.6-10.3) mg/dL Adrenal panel 04/25/17 Range/Units 04:20 Sodium 139 (136-145) mEq/L Potassium 3.7 (3.5-5.1) mEq/L Chloride 108 H (98-107) mEq/L Carbon Dioxide 22 L (23-29) mEq/L BUN 14 (6-20) mg/dL Creatinine 0.63 (0.60-1.20) mg/dL Glucose 83 (70-105) mg/dL Calcium 8.3 L (8.6-10.3) mg/dL Consult Discharge Plan - Plan Referrals: Malathi Mcknight [Primary Care Provider] - - Attending Attestation For this encounter, I have reviewed the OFFICE SWEEPER or PA documentation, treatment plan, and medical decision making; and I have had face to face time with this patient.
[2017-04-25] MEDS ORDERED: cefOXitin 2,000 MG in D5% in Water (Mini-Bag+) 100 ML IVPB SCH (16:00)
[2017-04-25] MEDS ORDERED: Clinimix E 5%-15% SOLUTION 2,000 ML with MVI, adult with vitamin K 10 ML IVC SCH (17:00)
[2017-04-25] MEDS: *HR* OxyCODONE Immed Rel 5 MG TABLET PO PRN (17:41)
[2017-04-25] MEDS: cefOXitin 2,000 MG in Water for inj. (sterile) 10 ML IVP SCH (18:36)
[2017-04-26] MEDS: Insulin LISPRO 300 UNITS/3 ML VIAL SQ SCH ×5 (00:08→17:44)
[2017-04-26] MEDS: cefOXitin 2,000 MG in Water for inj. (sterile) 10 ML IVP SCH ×3 (00:09→16:19)
[2017-04-26] MEDS: *HR* Heparin 5,000 UNIT/ML VIAL SQ SCH ×2 (05:22→17:26)
[2017-04-26] MEDS: *HR* OxyCODONE Immed Rel 5 MG TABLET PO PRN (05:22)
[2017-04-26 06:47] LABS: BUN/Creatinine Ratio 23 (6-26); Blood Urea Nitrogen 15 mg/dL (6-20); Calcium 8.6 mg/dL (8.6-10.3); Carbon Dioxide 18 mEq/L (23-29); Chloride 108 mEq/L (98-107); Glucose 99 mg/dL (70-105); Magnesium 2.2 mg/dL (1.6-2.6); Osmolality,Calculated 287 (280-300); Phosphorous 3.9 mg/dL (2.7-4.5); Sodium 138 mEq/L (136-145); eGFR For African Americans > 60 (> 60); eGFR For Non-African Americans > 60 (> 60)
[2017-04-26] MEDS: Pantoprazole 40 MG VIAL IVP SCH (08:48)
--- NOTE | 2017-04-26 10:07 | General Surgery Progress Note ---
Date of Encounter: 04/26/17 Time of Encounter: 09:45 - Assessment and Plan (1) Diverticulitis large intestine Current Visit: No Status: Acute CT Findings are consistent with acute sigmoid diverticulitis with a 4.1 cm focal diverticular abscess just superior to the inflamed sigmoid colon. IR unable to safely drain fluid collection Advance to clear liquid diet NPO after midnight for surgery on Tuesday04/27/17 IV fluids- stop MIV PICC line placement Continue TPN with goal total fluid rate being 83ml/hour (goal TPN rate) Retail Administrative Assistant for management of TPN IV antibiotics- continue Mefoxin (day #2) due to allergic reaction to cipro Supportive care and pain control IS every 1 hour while awake PPI therapy daily Serial abdominal exams Qualifiers: Diverticulitis bleeding: without bleeding Diverticulitis complication: with perforation Qualified Code(s): K57.20 - Diverticulitis of large intestine with perforation and abscess without bleeding (2) Thrush, oral Current Visit: Yes Status: Acute Add nystatin swish and swallow (3) Yeast infection involving the vagina and surrounding area Current Visit: Yes Status: Acute Add diflucan 100mg IV daily (4) DVT prophylaxis Current Visit: Yes Status: Acute Heparin 5,000 twice daily for DVT prophylaxis Ambulate hallways TID Subjective Patient reports: no new complaints, feels better, tolerating liquids well, voiding w/o difficulty, flatus, afebrile Objective Vital Signs - Last 8 Hours Temp Pulse Resp BP Pulse Ox 04/26/17 07:21 97.7 F 72 16 116/69 95 04/26/17 04:04 97.9 F 80 16 105/65 96 Intake and Output 04/25/17 04/26/17 04/26/17 23:59 07:59 15:59 Intake Total 410 / 410 Output Total 500 / 500 800 / 800 Balance -90 / -90 -790 / -790 Intake: IV Fluids Mefoxin 2,000 MG In Water for inj. (sterile) 10 ML @ 150 mls/ hr IVP Q8HR [facility] Rx#:[id number] Oral 400 / 400 0 / 0 Output: Urine 500 / 500 800 / 800 Other: Meal Dinner npo Blood Glucose* 106 121 - General physical appearance well developed, well nourished, no distress - Eyes normal ocular movement - ENT atraumatic, normocephalic, Other (oral thrush noted with white plaques on tongue ) - Neck Neck exam: trachea midline - Respiratory normal expansion, normal respiratory effort, clear to auscultation - Cardiovascular Cardiovascular exam: Present: RRR - Abdomen Abdomen: Present: bowel sounds present, soft, non tender - Neurologic CN 2-12 grossly intact - Musculoskeletal normal gait, normal posture - Psychiatric oriented to time, oriented to person, oriented to place, speech is normal, memory intact - Labs 04/25/17 04:20 04/26/17 04:15 Diabetes panel 04/25/17 04/26/17 Range/Units 04:20 04:15 Sodium 139 138 (136-145) mEq/L Potassium 3.7 4.0 (3.5-5.1) mEq/L Chloride 108 H 108 H (98-107) mEq/L Carbon Dioxide 22 L 18 L (23-29) mEq/L BUN 14 15 (6-20) mg/dL Creatinine 0.63 0.66 (0.60-1.20) mg/dL Glucose 83 99 (70-105) mg/dL Calcium 8.3 L 8.6 (8.6-10.3) mg/dL Calcium panel 04/25/17 04/26/17 Range/Units 04:20 04:15 Calcium 8.3 L 8.6 (8.6-10.3) mg/dL Phosphorus 4.2 3.9 (2.7-4.5) mg/dL Pituitary panel 04/25/17 04/26/17 Range/Units 04:20 04:15 Sodium 139 138 (136-145) mEq/L Potassium 3.7 4.0 (3.5-5.1) mEq/L Chloride 108 H 108 H (98-107) mEq/L Carbon Dioxide 22 L 18 L (23-29) mEq/L BUN 14 15 (6-20) mg/dL Creatinine 0.63 0.66 (0.60-1.20) mg/dL Glucose 83 99 (70-105) mg/dL Calcium 8.3 L 8.6 (8.6-10.3) mg/dL Adrenal panel 04/25/17 04/26/17 Range/Units 04:20 04:15 Sodium 139 138 (136-145) mEq/L Potassium 3.7 4.0 (3.5-5.1) mEq/L Chloride 108 H 108 H (98-107) mEq/L Carbon Dioxide 22 L 18 L (23-29) mEq/L BUN 14 15 (6-20) mg/dL Creatinine 0.63 0.66 (0.60-1.20) mg/dL Glucose 83 99 (70-105) mg/dL Calcium 8.3 L 8.6 (8.6-10.3) mg/dL Consult Discharge Plan - Plan Referrals: Malathi Mcknight [Primary Care Provider] - - Attending Attestation For this encounter, I have reviewed the SILK SCREENER or PA documentation, treatment plan, and medical decision making; and I have had face to face time with this patient.
[2017-04-26] MEDS: Nystatin SUSP 5 ML UD.LIQ PO SCH ×4 (10:59→21:27)
[2017-04-26] MEDS: Fluconazole 100 MG/50 ML 100 MG/50 ML BAG IVPB SCH (11:00)
[2017-04-26] MEDS ORDERED: Clinimix E 5%-15% SOLUTION 2,000 ML with MVI, adult with vitamin K 10 ML IVC SCH (17:00)
[2017-04-26] MEDS: Ondansetron 4 MG/2 ML VIAL IVP PRN (17:29)
[2017-04-27] MEDS: cefOXitin 2,000 MG in Water for inj. (sterile) 10 ML IVP SCH ×3 (00:29→23:08)
[2017-04-27] MEDS: Insulin LISPRO 300 UNITS/3 ML VIAL SQ SCH ×5 (01:26→20:40)
[2017-04-27 05:40] LABS: BUN/Creatinine Ratio 19 (6-26); Blood Urea Nitrogen 14 mg/dL (6-20); Calcium 8.8 mg/dL (8.6-10.3); Carbon Dioxide 26 mEq/L (23-29); Chloride 107 mEq/L (98-107); Glucose 74 mg/dL (70-105); Osmolality,Calculated 285 (280-300); Potassium 4.4 mEq/L (3.5-5.1); Sodium 138 mEq/L (136-145); eGFR For African Americans > 60 (> 60); eGFR For Non-African Americans > 60 (> 60)
[2017-04-27] MEDS: *HR* Heparin 5,000 UNIT/ML VIAL SQ SCH (05:49)
[2017-04-27] MEDS: Nystatin SUSP 5 ML UD.LIQ PO SCH ×4 (09:39→20:41)
[2017-04-27] MEDS: Fluconazole 100 MG/50 ML 100 MG/50 ML BAG IVPB SCH (09:43)
[2017-04-27] MEDS: Pantoprazole 40 MG VIAL IVP SCH (09:44)
--- NOTE | 2017-04-27 10:24 | Event Note ---
Date of Encounter: 04/27/17 Time of Encounter: 10:00 Discussed the risks, benefits, alternatives, expected outcomes with the patient and she is in agreement to proceed with a robotic-assisted sigmoid colon resection and possible ileostomy with Dr. Kuo today. Consent has been complete. The patient has been nothing by mouth after midnight.
[2017-04-27] MEDS ORDERED: Bupivacaine/Clonidine Syringe 1 EACH SYRINGE ONE (13:33)
[2017-04-27] MEDS ORDERED: *HR* Midazolam HCl 5 MG/5 ML VIAL IVP ONE (13:35)
--- NOTE | 2017-04-27 13:40 | Anesthesia Evaluation PreOp ---
Date of Encounter: 04/27/17 Time of Encounter: 13:39 - Past History Planned Operation: Robotic Sigmoid Colon Resection Cardiac History: Denies any Significant Hx Pulmonary History: Former smoker (quit 01/2017, smoked for 28 years), Snore STRANNER History: Denies Any Significant HX Other Medical History: Denies Any Significant HX Anesthesia History: No Prior Anesthetic Complications, Past Anesthesia ( hysterectomy) Alcohol Use: occasionally Drug use: none Medications and Allergies Varenicline Tartrate [Chantix Continuing Months Pack] 1 mg PO BID PRN 02/10/17 [ History] 3 Allergy/AdvReac Type Severity Reaction Status Date / Time Amoxicillin Allergy Hives Verified 02/10/17 17:26 Penicillins Allergy Hives Verified 02/10/17 17:26 codeine AdvReac See Verified 02/10/17 17:26 Comments - Meds/Allergy Pre-op Review Medications Reviewed: Yes Allergies Reviewed: Yes Beta Blockers on Current Med List: No Anesthesia Results - Labs 04/25/17 04:20 04/27/17 04:55 - Imaging EKG: report reviewed (02/10/2017) Additional studies: 02/11/2017 Echo Impressions: LVEF 70%. Normal LV chamber size, wall thickness and function. Mild left ventricular diastolic dysfunction. Normal right ventricular structure and function. No evidence of pulmonary hypertension. No significant valvular dysfunction. Anesthesia Exam Vital Signs/O2 Sat/Glucose, Most Recent Temp Pulse Resp BP Pulse Ox 98.3 F 77 14 130/88 99 04/27/17 10:57 04/27/17 10:57 04/27/17 10:57 04/27/17 10:57 04/27/17 10:57 Blood Glucose* 110 Height: 5'6''/1.68 m Weight: 178 lbs/81 kg NPO (# of Hours): 8 Pain Scale: 0 Pain Scale Used: Numeric (1 - 10) - HEENT Pupil (Motor): EOMI Mallampati: II Teeth: Normal Oral Opening: Greater than 3 - STRANNER LOC: Oriented STRANNER Motor: Normal RUE, Normal LUE, Normal RLE, Normal LLE, Normal Face STRANNER Sensory: Normal: RUE, LUE, RLE, LLE, Face - Cardiac Rhythm: Regular Murmur: None - Pulmonary Breath Sounds: bilateral Clear Respiratory Effort: Symmetrical Anesthesia Assess/Plan ASA Score: 2 Modified [place] Scale for Level of Consciousness: Cooperative, oriented, and tranquil Anesthetic Plan: General, Regional Monitoring Plan: Standard Monitors Recovery Plan: PACU
[2017-04-27] MEDS ORDERED: *HR* Magnesium Sulfate 1 GM/2 ML VIAL ONE (13:58)
[2017-04-27] MEDS ORDERED: *HR* Propofol 200 MG/20 ML VIAL IVP ONE (13:58)
[2017-04-27] MEDS ORDERED: *HR* Rocuronium Bromide 50 MG/5 ML VIAL ONE (14:01)
[2017-04-27] MEDS ORDERED: Lidocaine -MPF 2% 2 ML VIAL ONE (14:01)
--- NOTE | 2017-04-27 14:12 | Anesthesia Procedures ---
Date of Encounter: 04/27/17 Time of Encounter: 14:10 Procedures: Anesthesia - Nerve Block Procedure Date: 04/27/17 Time: 14:10 Allergies/Adv Reactions: amox, pcn, cod Pre-op Diagnosis: diverticulitis Surgical Procedure: robo sigmoid colectomy Checklist: Correct Patient Identifier Blood Thinner: No Monitor Applied: EKG, BP, Pulse Oximetry Supplemental Oxygen via Nasal Cannula (L/min): 3 Sedation: Versed (mg): 5 Indication: Post Op Analgesia Pre-op Neuro Deficits: No Block Type: Other (TAP) Catheter placed: No Sterile Technique: Yes Ultrasound used: Yes Anatomy identified: Yes Visual spread of Local: Yes Blood on Needle Aspiration: No Smooth Injection of Local: Yes Pain with Injection of Local: No Prep: Chlorhexadine Needle: 22 x 50 mm Stimuplex, 21 x 100 mm Stimuplex Local: 0.25% Bupivicaine w/Clonidine 20 mcg/cc Volume (cc): 40 Complications: None/effective block Vitals: 123/81 76 16 98% Comments: aseptic, VSS, tolerated well
[2017-04-27] MEDS ORDERED: Dexamethasone 4 MG/ML VIAL ONE (15:07)
[2017-04-27] MEDS ORDERED: Ketorolac 30 MG/ML VIAL ONE (15:07)
[2017-04-27] MEDS ORDERED: Ondansetron 4 MG/2 ML VIAL ONE (15:07)
[2017-04-27] MEDS ORDERED: *HR* Labetalol 20 MG/4 ML SYRINGE IVP PRN ×2 (15:43→18:11)
[2017-04-27] MEDS ORDERED: *HR* OxyCODONE Immed Rel 5 MG TABLET PO PRN (15:43)
[2017-04-27] MEDS ORDERED: Acetaminophen IV 1,000 MG/100 ML INFUS..BTL ONE (15:53)
[2017-04-27] MEDS ORDERED: Clinimix E 5%-15% SOLUTION 2,000 ML with MVI, adult with vitamin K 10 ML IVC SCH ×2 (17:00→18:11)
[2017-04-27] MEDS: *HR* Promethazine 25 MG/ML VIAL IVP PRN ×2 (17:15→17:25)
[2017-04-27] MEDS: MORPHINE SUL Oral CONC 10 MG/0.5 ML ORAL.SYG SL PRN ×2 (17:18→17:29)
--- NOTE | 2017-04-27 17:20 | Operative Note ---
Date of procedure: 04/27/17 Pre-op diagnosis: Sigmoid diverticulitis Post-op diagnosis: same Procedure: Robotic sigmoid colon resection with 29 mm EEA stapling Anesthesia: CORKY Surgeon: Alonso Kuo Was there an learning and development assistant present: Yes Insurance Agency Owner: Sharonda Chavez Estimated blood loss (cc): 25 Specimen: Sigmoid colon Condition: stable Disposition: floor Procedure in Detail: After informed consent, patient taken operating room placed supine position. After adequate sedation anesthesia patient was placed in a lithotomy position. After proper timeout a 12 mm cannula site was placed right superior to the umbilicus. Pneumoperitoneum was greater. A 13 mm cannula was placed in right lower quadrant. 5 mm camera was placed in the right upper quadrant. An 8 mm cannula was placed in subxiphoid region followed by another 8 mm in the left lower quadrant. Patient was placed in a headdown position. The robot was docked over the patient's left hip. Small bowel swept out of the pelvis. Rectosigmoid colon was then grasped and retracted cephalad. The peritoneum was then scored level of the sacral promontory. The left ureter was identified and kept on harm's way. The inferior mesenteric artery was then taken with a vessel sealer. The lateral rectosigmoid stalks were taken down the vessel sealer. The dissection was carried out down to approximate 4 cm above the pelvic floor. Rectosigmoid colon was dissected free from the retro-pubic tubercle region. Once it was freed a 45 mm robotic Endo staplers fired across the rectum. Once it was retracted and area was demarcated on the sigmoid colon for transection. Indocyanine green was infused and we had excellent perfusion. The splenic flexure was also taken down and mobilized. This mobilization allowed for less tension on the anastomosis. A counterincision was made in the suprapubic region. Dissection carried down the anterior rectus sheath. The rectus muscles were then divided in the midline with Liz clamp. Once they were split the rectosigmoid colon was delivered. Feliciano bowel clamps are used to place across the colon proximal and distal and transected. Allis clamps are placed on the bowel and then a pursestring suture device placed on the colon. 3-0 Prolene suture was passed. A pursestring sutures and created and a 29 mm EEA anvil was placed. Suture was tied and secured. Colon was then placed back in the pelvis. The stapler was passed through the anal canal and to the rectal stump and then the spear was placed through the staple line. The anvil was then connected secured and fired. There were 2 excellent donuts. There were several 2-0 silk sutures used to buttress the staple line. A leak test revealed no leak. At that point the procedure was terminated. All incisions are closed with 0 Vicryl suture and 4-0 Vicryl suture. Marcaine was inserted in the Pfannenstiel incision. She tolerated the procedure well.
[2017-04-27] MEDS ORDERED: *HR* FentaNYL (PF) 100 MCG/2 ML VIAL ONE (17:28)
[2017-04-27] MEDS ORDERED: Ringers Solution, Lactated 1,000 ML ONE (17:40)
--- NOTE | 2017-04-27 17:59 | Anesthesia Evaluation Post Op ---
Date of Encounter: 04/27/17 Time of Encounter: 17:58 - Vital Signs Vital Signs: Vital Signs/O2 Sat, Most Current Temp Pulse Resp BP Pulse Ox 98.0 F 74 12 107/65 100 04/27/17 17:34 04/27/17 17:44 04/27/17 17:44 04/27/17 17:44 04/27/17 17:44 - Lungs Lungs: Clear Ascult./Percussion - Airway Airway: Non-obstructed - Cardiovascular Regular Rate - Mental Status Mental Status: Asleep with brisk response to light stimulation - Nausea Vomiting Nausea Vomiting: Not Present - Hydration Hydration: Ice chips, Biggs catheter - Discharge PostOp Status: Transfer Patient to floor
[2017-04-27] MEDS ORDERED: Ondansetron 4 MG/2 ML VIAL IVP PRN (18:11)
[2017-04-27] MEDS ORDERED: Nicotine 14 MG PATCH.TD24 TD PRN (18:11)
[2017-04-27] MEDS ORDERED: *HR* Dextrose 50 % in Water (Syg) 50 ML SYRINGE IVP PRN (18:11)
[2017-04-27] MEDS ORDERED: Dextrose Gel 15 GM/37.5 ML TUBE PO PRN ×2 (18:11)
[2017-04-27] MEDS ORDERED: Naloxone 0.4 MG/ML INJ IVP PRN (18:11)
[2017-04-27] MEDS ORDERED: *HR* FentaNYL PATCH 25 MCG PATCH TD SCH (18:11)
[2017-04-27] MEDS ORDERED: Morphine Oral CONC 5 MG/0.25 ML ORAL.SYG PO PRN (18:11)
[2017-04-27] MEDS ORDERED: D10% in Water 500 ML IVC PRN (18:11)
[2017-04-27] MEDS ORDERED: Acetaminophen IV 1,000 MG/100 ML INFUS..BTL IVPB PRN (18:11)
[2017-04-27] MEDS ORDERED: D5% in Water 1,000 ML IVC PRN (18:11)
[2017-04-27] MEDS ORDERED: Saliva Stimulant 100ml BOTTLE PO PRN (18:11)
[2017-04-27] MEDS: Ketorolac 15 MG/ML VIAL IVP SCH ×2 (18:40→23:08)
[2017-04-27] MEDS: MORPHINE SUL Oral CONC 10 MG/0.5 ML ORAL.SYG PO PRN (19:36)
[2017-04-27] MEDS: *HR* OxyCODONE Immed Rel 5 MG TABLET PO PRN (21:46)
[2017-04-28] MEDS: MORPHINE SUL Oral CONC 10 MG/0.5 ML ORAL.SYG PO PRN ×3 (00:02→11:30)
[2017-04-28] MEDS: Insulin LISPRO 300 UNITS/3 ML VIAL SQ SCH ×6 (00:04→20:03)
[2017-04-28] MEDS: *HR* OxyCODONE Immed Rel 5 MG TABLET PO PRN ×4 (02:55→20:12)
[2017-04-28 05:11] LABS: BUN/Creatinine Ratio 29 (6-26); Blood Urea Nitrogen 20 mg/dL (6-20); Calcium 8.8 mg/dL (8.6-10.3); Carbon Dioxide 23 mEq/L (23-29); Chloride 109 mEq/L (98-107); Glucose 98 mg/dL (70-105); Osmolality,Calculated 289 (280-300); Potassium 4.9 mEq/L (3.5-5.1); Sodium 138 mEq/L (136-145); eGFR For African Americans > 60 (> 60); eGFR For Non-African Americans > 60 (> 60)
[2017-04-28] MEDS: *HR* Heparin 5,000 UNIT/ML VIAL SQ SCH ×2 (06:04→17:27)
[2017-04-28] MEDS: Ketorolac 15 MG/ML VIAL IVP SCH ×3 (06:04→17:27)
[2017-04-28] MEDS: Nystatin SUSP 5 ML UD.LIQ PO SCH ×4 (08:01→20:12)
[2017-04-28] MEDS: Pantoprazole 40 MG VIAL IVP SCH (08:01)
[2017-04-28 10:38] LABS: Basophils % 0.2 %; Eosinophils % 0.1 %; Hematocrit 35.4 % (35.3-44.9); Hemoglobin 11.4 g/dL (11.5-15.4); Immature Granulocytes % 1.4 % (0-4); Lymphocytes # 1.7 K/mcL (0.6-4.6); Mean Corpuscular HGB Conc 32.2 g/dL (31.6-35.5); Mean Corpuscular Hemoglobin 29.9 pg (28.0-33.3); Mean Corpuscular Volume 92.9 fL (83.0-100.0); Monocytes % 11.8 %; Neutrophils # 12.8 K/mcL (1.6-8.9); Platelet Count 428 K/mcL (140-400); Red Blood Count 3.81 M/mcL (3.82-4.97); Red Cell Distribution Width 13.8 % (11.5-14.5); Segmented Neutrophils % 76.5 %
[2017-04-28] MEDS: cefOXitin 2,000 MG in Water for inj. (sterile) 10 ML IVP SCH ×2 (10:55→17:27)
[2017-04-28] MEDS: Fluconazole 100 MG/50 ML 100 MG/50 ML BAG IVPB SCH (10:56)
[2017-04-28] MEDS ORDERED: MORPHINE SUL Oral CONC 10 MG/0.5 ML ORAL.SYG PO PRN (14:07)
--- NOTE | 2017-04-28 14:14 | General Surgery Progress Note ---
Date of Encounter: 04/28/17 Time of Encounter: 13:45 - Assessment and Plan (1) Diverticulitis large intestine Current Visit: No Status: Acute CT Findings are consistent with acute sigmoid diverticulitis with a 4.1 cm focal diverticular abscess just superior to the inflamed sigmoid colon. POD #1 Robotic assisted sigmoid resection Pathology pending Clear liquid diet today- may have coffee with cream and sugar Continue TPN with goal total fluid rate being 83ml/hour (goal TPN rate) Engineer Operations And Maintenance for management of TPN IV antibiotics- continue Mefoxin (day #4) due to allergic reaction to cipro Supportive care and pain control- scheduled ofirmev, toradol, fentanyl patch; prn roxicodone and morphine sulfate IS every 1 hour while awake PPI therapy daily AM labs- CBC, BMP Qualifiers: Diverticulitis bleeding: without bleeding Diverticulitis complication: with perforation Qualified Code(s): K57.20 - Diverticulitis of large intestine with perforation and abscess without bleeding (2) Thrush, oral Current Visit: Yes Status: Acute Continue nystatin swish and swallow (3) Yeast infection involving the vagina and surrounding area Current Visit: Yes Status: Acute Continue diflucan 100mg IV daily (4) DVT prophylaxis Current Visit: Yes Status: Acute Heparin 5,000 twice daily for DVT prophylaxis Ambulate hallways TID Subjective Patient reports: no new complaints, still having pain (post-operative pain), flatus, no bowel movement, afebrile, other (Pain control not optimal- difficult to deep breath and get out of bed) Objective Vital Signs - Last 8 Hours Temp Pulse Resp BP Pulse Ox 04/28/17 14:05 97.8 F 72 14 109/74 93 04/28/17 11:16 99.0 F 70 12 109/67 96 04/28/17 10:55 98.1 F 67 15 99/63 97 04/28/17 06:45 97.7 F 83 15 95/60 93 Intake and Output 04/27/17 04/28/17 04/28/17 23:59 07:59 15:59 Intake Total 120 / 120 120 / 120 Output Total 2225 / 2225 400 / 400 850 / 850 Balance -2215 / -2215 -280 / -280 -730 / -730 Intake: IV Fluids Mefoxin 2,000 MG In Water for inj. (sterile) 10 ML @ 150 mls/ hr IVP Q8HR [facility] Rx#:[id number] Oral 0 / 0 120 / 120 120 / 120 Output: Estimated Blood Loss 25 / 25 Catheter 2200 / 2200 400 / 400 850 / 850 Other: Meal NPO NPO Blood Glucose* 180 143 117 - General physical appearance well developed, well nourished, no distress - Eyes normal ocular movement - ENT dry mucosa, atraumatic, normocephalic, Other (thrush improving) - Neck Neck exam: trachea midline - Respiratory normal respiratory effort, clear to auscultation - Cardiovascular Cardiovascular exam: Present: RRR - Abdomen Abdomen: Present: bowel sounds present, soft, tender (expected post-operative pain) - Incision Incision: Present: clean and dry, intact - Genitourinary other (Biggs catheter to straight drain with clear, yellow urine) - Neurologic CN 2-12 grossly intact - Psychiatric oriented to time, oriented to person, oriented to place, speech is normal, memory intact - Labs 04/28/17 10:27 04/28/17 04:14 Diabetes panel 04/28/17 Range/Units 04:14 Sodium 138 (136-145) mEq/L Potassium 4.9 (3.5-5.1) mEq/L Chloride 109 H (98-107) mEq/L Carbon Dioxide 23 (23-29) mEq/L BUN 20 (6-20) mg/dL Creatinine 0.70 (0.60-1.20) mg/dL Glucose 98 (70-105) mg/dL Calcium 8.8 (8.6-10.3) mg/dL Calcium panel 04/28/17 Range/Units 04:14 Calcium 8.8 (8.6-10.3) mg/dL Pituitary panel 04/28/17 Range/Units 04:14 Sodium 138 (136-145) mEq/L Potassium 4.9 (3.5-5.1) mEq/L Chloride 109 H (98-107) mEq/L Carbon Dioxide 23 (23-29) mEq/L BUN 20 (6-20) mg/dL Creatinine 0.70 (0.60-1.20) mg/dL Glucose 98 (70-105) mg/dL Calcium 8.8 (8.6-10.3) mg/dL Adrenal panel 04/28/17 Range/Units 04:14 Sodium 138 (136-145) mEq/L Potassium 4.9 (3.5-5.1) mEq/L Chloride 109 H (98-107) mEq/L Carbon Dioxide 23 (23-29) mEq/L BUN 20 (6-20) mg/dL Creatinine 0.70 (0.60-1.20) mg/dL Glucose 98 (70-105) mg/dL Calcium 8.8 (8.6-10.3) mg/dL - VTE Documentation of Mechanical Device: Intermittent pneumatic compression device Consult Discharge Plan - Plan Referrals: Malathi Mcknight [Primary Care Provider] -
[2017-04-28] MEDS ORDERED: Clinimix E 5%-15% SOLUTION 2,000 ML with MVI, adult with vitamin K 10 ML IVC SCH (17:00)
[2017-04-29] MEDS: Insulin LISPRO 300 UNITS/3 ML VIAL SQ SCH ×5 (00:46→16:43)
[2017-04-29] MEDS: cefOXitin 2,000 MG in Water for inj. (sterile) 10 ML IVP SCH ×3 (00:51→16:44)
[2017-04-29] MEDS: Ketorolac 15 MG/ML VIAL IVP SCH ×4 (00:52→16:44)
[2017-04-29] MEDS: *HR* OxyCODONE Immed Rel 5 MG TABLET PO PRN (03:42)
[2017-04-29 04:51] LABS: Basophils % 0.7 %; Eosinophils % 1.5 %; Hematocrit 35.9 % (35.3-44.9); Hemoglobin 11.7 g/dL (11.5-15.4); Immature Granulocytes % 2.5 % (0-4); Lymphocytes % 24.6 %; Mean Corpuscular HGB Conc 32.6 g/dL (31.6-35.5); Mean Corpuscular Hemoglobin 30.3 pg (28.0-33.3); Mean Platelet Volume 10.9 fL (9.4-12.4); Monocytes % 14.9 %; Platelet Count 427 K/mcL (140-400); Red Blood Count 3.86 M/mcL (3.82-4.97); Red Cell Distribution Width 14.2 % (11.5-14.5); Segmented Neutrophils % 55.8 %
[2017-04-29 04:52] LABS: Basophils # 0.1 K/mcL (0.0-0.2); Eosinophils # 0.2 K/mcL (0.0-0.6); Lymphocytes # 3.8 K/mcL (0.6-4.6); Monocytes # 2.3 K/mcL (0.0-1.3); Neutrophils # 8.6 K/mcL (1.6-8.9)
[2017-04-29 04:56] LABS: BUN/Creatinine Ratio 29 (6-26); Blood Urea Nitrogen 22 mg/dL (6-20); Calcium 8.7 mg/dL (8.6-10.3); Carbon Dioxide 25 mEq/L (23-29); Chloride 107 mEq/L (98-107); Glucose 79 mg/dL (70-105); Magnesium 2.1 mg/dL (1.6-2.6); Osmolality,Calculated 288 (280-300); Phosphorous 3.9 mg/dL (2.7-4.5); Potassium 4.5 mEq/L (3.5-5.1); Sodium 138 mEq/L (136-145); Triglycerides 127 mg/dL (< 150); eGFR For African Americans > 60 (> 60); eGFR For Non-African Americans > 60 (> 60)
[2017-04-29] MEDS: *HR* Heparin 5,000 UNIT/ML VIAL SQ SCH ×2 (06:15→16:44)
[2017-04-29] MEDS ORDERED: Famotidine 20 MG TABLET PO SCH (10:15)
[2017-04-29] MEDS: Pantoprazole 40 MG VIAL IVP SCH (10:33)
[2017-04-29] MEDS: Nystatin SUSP 5 ML UD.LIQ PO SCH ×3 (10:33→16:44)
[2017-04-29] MEDS: Fluconazole 100 MG/50 ML 100 MG/50 ML BAG IVPB SCH (10:35)
[2017-04-29] MEDS ORDERED: *HR* OxyCODONE/APAP 7.5/325 TABLET PO PRN (13:22)
--- NOTE | 2017-04-29 13:34 | General Surgery Progress Note ---
Date of Encounter: 04/29/17 Time of Encounter: 13:00 - Assessment and Plan (1) Diverticulitis large intestine Current Visit: No Status: Acute CT Findings are consistent with acute sigmoid diverticulitis with a 4.1 cm focal diverticular abscess just superior to the inflamed sigmoid colon. POD #2 Robotic assisted sigmoid resection Pathology pending Saline lock Advance to full liquid diet with ensure HP for protein supplements Decrease TPN to 50ml/hour and stop at 1700 IV antibiotics- continue Mefoxin (day #5) due to allergic reaction to cipro Supportive care and pain control- scheduled toradol, fentanyl patch; prn percocet and morphine sulfate IS every 1 hour while awake PPI therapy daily AM labs- CBC Qualifiers: Diverticulitis bleeding: without bleeding Diverticulitis complication: with perforation Qualified Code(s): K57.20 - Diverticulitis of large intestine with perforation and abscess without bleeding (2) Thrush, oral Current Visit: Yes Status: Acute Continue nystatin swish and swallow (3) Yeast infection involving the vagina and surrounding area Current Visit: Yes Status: Acute Continue diflucan 100mg IV daily (4) DVT prophylaxis Current Visit: Yes Status: Acute Heparin 5,000 twice daily for DVT prophylaxis Ambulate hallways TID Subjective Patient reports: no new complaints, feels better, still having pain, pain is less, tolerating liquids well, voiding w/o difficulty, flatus, no bowel movement , afebrile Objective Vital Signs - Last 8 Hours Temp Pulse Resp BP Pulse Ox 04/29/17 11:14 98.6 F 102 14 100/64 95 04/29/17 07:13 98.0 F 70 14 101/58 94 Intake and Output 04/28/17 04/29/17 04/29/17 23:59 07:59 15:59 Intake Total 360 / 360 510 / 510 300 / 300 Output Total 0 / 0 1700 / 1700 500 / 500 Balance 360 / 360 -1190 / -1190 -200 / -200 Intake: IV Fluids 270 / 270 Mefoxin 2,000 MG In Water for 20 / 20 inj. (sterile) 10 ML @ 150 mls/ hr IVP Q8HR [facility] Rx#:[id number] Intralipid 20% 250 ML @ 21 mls/ 250 / 250 hr IVPB DAILY@1700 [facility] Rx#: [id number] Oral 360 / 360 240 / 240 300 / 300 Output: Urine 0 / 0 1700 / 1700 500 / 500 Other: Blood Glucose* 118 115 103 - General physical appearance well developed, well nourished, no distress - Eyes normal ocular movement - ENT normal mucosa, atraumatic, normocephalic - Neck Neck exam: trachea midline - Respiratory normal respiratory effort, clear to auscultation - Cardiovascular Cardiovascular exam: Present: RRR - Abdomen Abdomen: Present: bowel sounds present, soft, tender (Expected postoperative tenderness) - Incision Incision: Present: clean and dry, intact - Integumentary no rash (itching all over) - Neurologic CN 2-12 grossly intact - Psychiatric oriented to time, oriented to person, oriented to place, speech is normal, memory intact - Labs 04/29/17 04:21 04/29/17 04:21 Diabetes panel 04/29/17 Range/Units 04:21 Sodium 138 (136-145) mEq/L Potassium 4.5 (3.5-5.1) mEq/L Chloride 107 (98-107) mEq/L Carbon Dioxide 25 (23-29) mEq/L BUN 22 H (6-20) mg/dL Creatinine 0.77 (0.60-1.20) mg/dL Glucose 79 (70-105) mg/dL Calcium 8.7 (8.6-10.3) mg/dL Triglycerides 127 (< 150) mg/dL Calcium panel 04/29/17 Range/Units 04:21 Calcium 8.7 (8.6-10.3) mg/dL Phosphorus 3.9 (2.7-4.5) mg/dL Pituitary panel 04/29/17 Range/Units 04:21 Sodium 138 (136-145) mEq/L Potassium 4.5 (3.5-5.1) mEq/L Chloride 107 (98-107) mEq/L Carbon Dioxide 25 (23-29) mEq/L BUN 22 H (6-20) mg/dL Creatinine 0.77 (0.60-1.20) mg/dL Glucose 79 (70-105) mg/dL Calcium 8.7 (8.6-10.3) mg/dL Adrenal panel 04/29/17 Range/Units 04:21 Sodium 138 (136-145) mEq/L Potassium 4.5 (3.5-5.1) mEq/L Chloride 107 (98-107) mEq/L Carbon Dioxide 25 (23-29) mEq/L BUN 22 H (6-20) mg/dL Creatinine 0.77 (0.60-1.20) mg/dL Glucose 79 (70-105) mg/dL Calcium 8.7 (8.6-10.3) mg/dL - VTE Documentation of Mechanical Device: Intermittent pneumatic compression device Consult Discharge Plan - Plan Referrals: Malathi Mcknight [Primary Care Provider] - - Attending Attestation For this encounter, I have reviewed the COMPLIANCE ADVISOR or PA documentation, treatment plan, and medical decision making; and I have had face to face time with this patient.
[2017-04-29 15:08] VITALS: BP 115/74
--- NOTE | 2017-04-29 15:17 | Discharge Summary ---
Date of Encounter: 04/29/17 Time of Encounter: 15:00 - Discharge Diagnosis (1) Diverticulitis large intestine Priority: Primary Status: Acute Qualifiers: Diverticulitis bleeding: without bleeding Diverticulitis complication: with perforation Qualified Code(s): K57.20 - Diverticulitis of large intestine with perforation and abscess without bleeding (2) Thrush, oral Priority: Secondary Status: Resolved (3) Yeast infection involving the vagina and surrounding area Priority: Secondary Status: Resolved - Discharge Medications Prescriptions: OxyCODONE/APAP 7.5/325 [Percocet 7.5/325 MG] 1 each PO Q4HR PRN 7 Days #30 tablet PRN Reason: Moderate Pain Ondansetron ODT [Zofran ODT] 4 mg SL Q6HR PRN #30 tab.rapdis PRN Reason: Nausea Ibuprofen [Motrin] 800 mg PO Q8HR #50 tablet Docusate [Colace] 100 mg PO BID #60 capsule Fluconazole [Diflucan] 100 mg PO DAILY #5 tablet Home Medications: Varenicline Tartrate [Chantix Continuing Months Pack] 1 mg PO BID PRN 02/10/17 [ History] Docusate [Colace] 100 mg PO BID #60 capsule 04/29/17 [Rx] Fluconazole [Diflucan] 100 mg PO DAILY #5 tablet 04/29/17 [Rx] Ibuprofen [Motrin] 800 mg PO Q8HR #50 tablet 04/29/17 [Rx] Ondansetron ODT [Zofran ODT] 4 mg SL Q6HR PRN #30 tab.rapdis 04/29/17 [Rx] OxyCODONE/APAP 7.5/325 [Percocet 7.5/325 MG] 1 each PO Q4HR PRN 7 Days #30 tablet 04/29/17 [Rx] Allergies/Adverse Reactions: 3 Allergy/AdvReac Type Severity Reaction Status Date / Time Amoxicillin Allergy Hives Verified 02/10/17 17:26 Penicillins Allergy Hives Verified 02/10/17 17:26 codeine AdvReac See Verified 02/10/17 17:26 Comments General Surgery Exam Initial Vital Signs Temp Pulse Resp BP Pulse Ox 100.6 F H 115 18 127/85 97 04/21/17 12:11 04/21/17 12:11 04/21/17 12:11 04/21/17 12:11 04/21/17 12:11 Date of admission: 04/21/17 23:34 Primary care physician: Malathi Mcknight Consults: 04/22/17 10:36 Consult to Invasive Line Access Team [CONS] Routine Reason for Consult: Picc Line Insertion Line Type: PICC PICC line indications: Parental nutrition Time Notified: 10:36 Call Completed: Yes consult to weft straightener [Consult to Nutrition] [CONS] Routine Comment: Total fluid rate will be 100ml/hour Consulting Provider: NUTRITION Reason for Dietary Consult: TPN Start and Manage Discharging clinician: Alonso Kuo (Mitesh Motta) Anticipated date of discharge: 04/29/17 - Patient Status Disposition: Home, Self-Care Condition: Good Functional capacity at discharge: independent ambulation Overall status at discharge: patient is progressing back to baseline - Discharge Instructions Follow Up With: Malathi Mcknight [Primary Care Provider] - Nida Motta CNP [Advanced Practice Nurse] - 05/09/17 3:45 pm (surgery follow-up) Forms: ED Satisfaction Letter, Work/School Release Additional Instructions: #1 may shower, no tub bath for 2 weeks #2 wash incisions with soap and water and pat dry daily #3 no lifting, pushing, pulling more than 15 pounds for the next 4 weeks #4 no driving until off narcotics for 24 hours and able to safely react in the car #5 may climb stairs - Diet and Activity Activity: other (See additional instructions above) Diet: other (May slowly advance to soft diet as tolerated) - Hospital Course Hospital course: Ms. Roberts is a 42 year old female with a history of a perforated diverticulitis. She was scheduled to have her outpatient interval colonoscopy with Dr. Kuo last week. While taking her bowel prep, she experienced recurrent severe abdominal pain. She also experienced fevers. The patient was directly admitted to the hospital and a CAT scan was complete. Her CAT scan showed evidence of recurrent diverticulitis with abscess formation. The patient was admitted to the hospital for conservative treatment including bowel rest, IV fluids, IV antibiotics, TPN therapy. After bowel resting, the patient was taken to the operating room for a robotic-assisted sigmoid resection with Dr. Kuo. With return of bowel function, her diet was slowly advanced. She is currently tolerating a full liquid diet without difficulty. Her postoperative pain is well-controlled. Her vital signs are stable. She is passing flatus. Her laboratory values are stable. Her TPN therapy has been weaned off. We will begin discharge planning to home and plan for outpatient follow-up in the next 10-14 days. - Time Spent with Patient Total time spent providing and/or coordinating discharge services: Less than 30 minutes Labs on day of discharge: Labs from last 24 hours 04/29/17 04/29/17 04/29/17 11:15 07:56 04:21 WBC 15.4 H RBC 3.86 Hgb 11.7 Hct 35.9 MCV 93.0 MCH 30.3 MCHC 32.6 RDW 14.2 Plt Count 427 H MPV 10.9 Immature Gran % 2.5 Seg Neutrophils % 55.8 Lymphocytes % 24.6 Monocytes % 14.9 Eosinophils % 1.5 Basophils % 0.7 Neutrophils # 8.6 Lymphocytes # 3.8 Monocytes # 2.3 H Eosinophils # 0.2 Basophils # 0.1 Sodium Potassium Chloride Carbon Dioxide BUN Creatinine Est GFR ( Amer) Est GFR (Non-Af Amer) BUN/Creatinine Ratio Glucose POC Glucose 103 H 115 H Calculated Osmolality Calcium Phosphorus Magnesium Triglycerides 04/29/17 04/29/17 04/28/17 04:21 03:50 23:37 WBC RBC Hgb Hct MCV MCH MCHC RDW Plt Count MPV Immature Gran % Seg Neutrophils % Lymphocytes % Monocytes % Eosinophils % Basophils % Neutrophils # Lymphocytes # Monocytes # Eosinophils # Basophils # Sodium 138 Potassium 4.5 Chloride 107 Carbon Dioxide 25 BUN 22 H Creatinine 0.77 Est GFR ( Amer) > 60 Est GFR (Non-Af Amer) > 60 BUN/Creatinine Ratio 29 H Glucose 79 POC Glucose 98 H 118 H Calculated Osmolality 288 Calcium 8.7 Phosphorus 3.9 Magnesium 2.1 Triglycerides 127 04/28/17 04/28/17 04/28/17 19:31 15:39 11:44 WBC RBC Hgb Hct MCV MCH MCHC RDW Plt Count MPV Immature Gran % Seg Neutrophils % Lymphocytes % Monocytes % Eosinophils % Basophils % Neutrophils # Lymphocytes # Monocytes # Eosinophils # Basophils # Sodium Potassium Chloride Carbon Dioxide BUN Creatinine Est GFR ( Amer) Est GFR (Non-Af Amer) BUN/Creatinine Ratio Glucose POC Glucose 114 H 114 H 117 H Calculated Osmolality Calcium Phosphorus Magnesium Triglycerides 04/28/17 04/28/17 04/27/17 08:19 03:32 23:17 WBC RBC Hgb Hct MCV MCH MCHC RDW Plt Count MPV Immature Gran % Seg Neutrophils % Lymphocytes % Monocytes % Eosinophils % Basophils % Neutrophils # Lymphocytes # Monocytes # Eosinophils # Basophils # Sodium Potassium Chloride Carbon Dioxide BUN Creatinine Est GFR ( Amer) Est GFR (Non-Af Amer) BUN/Creatinine Ratio Glucose POC Glucose 130 H 143 H 180 H Calculated Osmolality Calcium Phosphorus Magnesium Triglycerides - Attending Attestation For this encounter, I have reviewed the TELESERVICES REPRESENTATIVE or PA documentation, treatment plan, and medical decision making; and I have had face to face time with this patient.
== END 2017-04-29 18:16 | disposition home or self-care (01) | DRG 231 ==
LOC: 3ANU 12:04 → EMEROO 12:04 → 3ANU 16:17
PROVIDERS: ADMIT Nurse Practitioner; ATTEND Surgery